=== PATIENT | female | born 1995 | race Caucasian/White ===

== ENCOUNTER 2016-06-25 18:38 | Emergency (ER) | payer SELFPAY ==
[~2016-06-25] VITALS: Ht 175.3 cm; Wt 99.8 kg
[~2016-06-25 18:38] MED LIST: AZTH250C PO; CEFD300C PO; PRCD5U PO; PRD20T PO
--- OUTSIDE RECORDS SUMMARY | 2016-06-25 18:44 | XMS REPORT | Continuity of Care Document ---
Author Author [facility] Organization [facility] Address Unknown Phone Unavailable Care Team Providers Care Photograph Printer Name Role Phone MEREDITH RODGERS MD PP Insurance Providers Payer Name Policy Number Subscriber Name Relationship Self Pay Mariposa Sauer 01 Self / Same As Patient Advance Directives Directive Response Recorded Date Advance Directives N 02/26/13 8:47pm Organ Donor Y 02/26/13 8:47pm Problems No Known Problems or Medical conditions. Social History History Response Recorded Date/Time Alcohol Use Denies Use 02/26/13 8:47pm Recreational Drug Use N 02/26/13 8:47pm Sexually Transmitted Disease N 02/26/13 8 :47pm Allergies, Adverse Reactions, Alerts Allergen Type Severity Reaction Last Updated No Known Drug Allergies 08/06/12 Medications Medication Dose Units Route Sig Qty Days Promethazine HCl/Codeine (Phenergan W/Codeine Syrup) 0 PO Q6H PRN 7 Prednisone 40 Mg PO DAILY 5 Cefdinir (Omnicef Capsule) 300 Mg PO BID 7 Promethazine HCl/Codeine (Phenergan W/Codeine Syrup) 5 Ml PO Q6H PRN 60 Azithromycin (Zithromax) 1 Tab PO DAILY 4 Response Recorded Date/Time Status not known Unknown Results No Known Relevant Diagnostic Tests, Laboratory Data and/or Discharge Summary. Encounters Encounter Location Date/Time Departed Emergency Room [facility] 8:44pm
[2016-06-25] MEDS ORDERED: IRON PO (19:05)
--- NOTE | 2016-06-25 19:12 | ED General ---
General Chief Complaint: Lower Extremity Stated Complaint: L FOOT INJ, ALSO WANTS TO BE SEEN FOR COLD TX 1 MO Nursing Triage Note: RUNNING DOWN HALLWAY AND TRIPPED, STATES SHE HEARD A 'POP' SOUND. C/O SORE KNEE BUT MAIN CONCERN IS UNABLE TO BEAR WEIGHT ON ANKLE. PT STATES SHE HAS ALSO HAD A COLD THAT COMES AND GO X 1 MONTH AND COUGH IS KEEPING HER AWAKE AT NIGHT Nursing Sepsis Screen: No Definite Risk Source of Information: Patient Exam Limitations: No Limitations History of Present Illness Time Seen by Provider: 19:12 Initial Comments 20-year-old female patient presents to the emergency department complains of left foot and left knee pain. Patient reports running down the hallway and tripped. [place] a popping sound in her foot and possibly and her knee. Also reports she has had a cold for approximately one month. Reports she did have 4 days of feeling good without symptoms. The last 2 weeks has had green productive cough, green nasal drainage, mild sore throat, and generalized malaise. Dad reports patient has been waking herself up coughing throughout the night. Father reports patient has used multiple zkyb-qmu-wzpygjb decongestants, antihistamines, and cough suppressants without improvement in symptoms. Timing/Duration: 4-6 Hours ((left ankle and knee)), Constant, Other (1 month onset of upper resp symptoms.) Modifying Factors: worse with Movement, worse with Other (worse with coughing) Allergies and Home Medications Allergies Coded Allergies: No Known Drug Allergies (Unverified , 08/06/12) Home Medications 130 MG PO DAILY (Reported) Benzonatate 200 Mg Capsule #30 200 MG PO Q8H PRN PRN COUGH Prescribed by: MALIK DOYLE on 06/25/161957 Doxycycline Hyclate 100 Mg Capsule #14 100 MG PO BID Prescribed by: MALIK DOYLE on 06/25/161957 Constitutional: No chills, No diaphoresis, No fever, malaise EENTM: nose congestion throat painNo ear pain, No eye pain, No mouth pain, No throat swelling Respiratory: see HPI cough phlegmNo short of breath, No wheezing (occasional wheezing. Denies current wheezing.) Cardiovascular: no symptoms reported Gastrointestinal: no symptoms reported Genitourinary: no symptoms reported Musculoskeletal: see HPINo back pain, joint pain (left foot and left knee) joint swelling (left foot)No neck pain Skin: No change in color, No lumps Psychiatric/Neurological: Denies Headache, Denies Numbness, Denies Paresthesia , Denies Tingling, Denies Weakness All Other Systems Reviewed Negative Unless Noted: Yes (Negative excepted noted.) Past Vyjxznp-Swrhhc-Nugzni Hx Patient Social History Alcohol Use: Occasionally Uses Recreational Drug Use: No Smoking Status: Never a Smoker Recent Foreign Travel: No Contact w/Someone Who Travel: No Recent Infectious Disease Expo: No Recent Hopitalizations: No Physical Abuse Screen: No Sexual Abuse: No Immunizations Up To Date Tetanus Booster (TDap): More than 5yrs PED Vaccines UTD: Yes Seasonal Allergies Seasonal Allergies: Yes (cough ) Surgeries HX Surgeries: No Respiratory Hx Respiratory Disorders: No Cardiovascular Hx Cardiac Disorders: No Neurological Hx Neurological Disorders: No Reproductive System : No Hx Reproductive Disorders: No Sexually Transmitted Disease: No Genitourinary Hx Genitourinary Disorders: No Gastrointestinal Hx Gastrointestinal Disorders: No Musculoskeletal Hx Musculoskeletal Disorders: No Endocrine Hx Endocrine Disorders: No HEENT HX ENT Disorders: No Cancer Hx Cancer: No Psychosocial Hx Psychiatric Problems: Yes Behavioral Health Disorders: Anxiety Integumentary HX Skin/Integumentary Disorder: No Blood Transfusions Hx Blood Disorders: Yes (ANEMIA) Reviewed Nursing Assessment Reviewed/Agree w Nursing PMH: Yes Family Medical History Significant Family History: No Pertinent Family Hx Physical Exam Vital Signs Vital Sign - Last 12Hours 06/25/16 18:48 Temp 97.6 Pulse 126 Resp 22 B/P 147/113 Pulse Ox 98 O2 Delivery Room Air Capillary Refill : Less Than 3 Seconds General Appearance: No Apparent Distress WD/WN HEENT: PERRL/EOMI TMs Normal Pharyngeal Erythema Other (positive nasal congestion. Negative sinus tenderness.) Neck: Full Range of Motion Normal Inspection Non Tender Supple Respiratory: Lungs Clear Normal Breath Sounds No Respiratory Distress Cardiovascular: No Murmur Normal Peripheral Pulses Tachycardia Gastrointestinal: Non Tender SoftNo Distended Extremity: Normal Capillary Refill Normal Range of Motion No Calf Tenderness No Pedal Edema Other (soft tissue and bony tenderness of the lateral, proximal left lower leg. soft tissue and bony tenderness of the left dorsum foot over the 3rd and 4th distal metatarsals. Non-acute ecchymosis left anterior distal thigh and inferior knee (patient states she was cleaning out the garage and bumped the area with storage tubs).) Neurologic/Psychiatric: Alert Oriented x3 No Motor/Sensory Deficits Normal Mood/Affect Skin: Normal Color Warm/Dry Ecchymosis (Non-acute ecchymosis left anterior distal thigh and inferior knee (patient states she was cleaning out the garage and bumped the area with storage tubs).) Progress/Results/Core Measures Results/Orders My Orders Orders-MALIK DOYLE Tibia/Fibula, Left, 2 Views (06/25/16 19:23) Foot, Left, 3 Views (06/25/16 19:23) Hydrocodone/Apap 5/325 Tablet (Lortab 5 (06/25/16 19:23) Benzonatate Capsule (Tessalon Perles) (06/25/16 19:30) Rx-Doxycycline Tablet (Rx-Vibramycin Tab (06/25/16 19:23) Medications Given in ED Current Medications Medications Dose Ordered Sig/Avelino Route Start Time Stop Time Status Last Admin Dose Admin Benzonatate 200 mg ONCE ONCE PO 06/25/16 19:30 06/25/16 19:31 DC 06/25/16 20:03 200 MG Vital Signs/I&O Vital Sign - Last 12Hours 06/25/16 18:48 Temp 97.6 Pulse 126 Resp 22 B/P 147/113 Pulse Ox 98 O2 Delivery Room Air Blood Pressure Mean: 124 Diagnostic Imaging Diagonstic Imaging: Xray Plain Films/CT/US/NM/MRI: leg Comments FINDINGS: There is no evidence for an acute fracture or dislocation. The joint spaces are well maintained. There is no significant soft tissue swelling. The frontal view does not include the distal fibula. IMPRESSION: No acute process. Dictated on workstation # [id number] Reviewed: Reviewed by Me (radiology report reviewed by me) Diagonstic Imaging: Xray Plain Films/CT/US/NM/MRI: other (left foot) Comments FINDINGS: Three views of the foot. There is no evidence for an acute fracture or dislocation. The joint spaces are well maintained. There is no significant soft tissue swelling. IMPRESSION: No acute process. Dictated on workstation # [id number] Reviewed: Reviewed by Me (radiology report reviewed by me) Departure Communication Progress Notes Diagnostic findings discussed with the patient. Plan for discharge to home. Impression Impression: Primary Impression: Sprain of foot, left Qualified Code: S93.602A - Unspecified sprain of left foot, initial encounter Additional Impressions: Knee pain, left Qualified Code: M25.562 - Pain in left knee Bronchitis, acute Qualified Code: J20.9 - Acute bronchitis, unspecified Disposition: 01 HOME, SELF-CARE Condition: Improved Departure-Patient Inst. Decision time for Depature: 20:50 Referrals: MEREDITH MANZANO MD (PCP) Primary Care Physician Patient Instructions: Acute Bronchitis, Adult (DC), Sprain (DC) Add. Discharge Instructions: All discharge instructions reviewed with patient and/or family. Voiced understanding. Medications as instructed. Tylenol Extra Strength over-the- counter as directed for pain. Ibuprofen 800 mg by mouth every 8 hours as needed for pain. Elevate the left knee and foot on pillows. Ice pack for 20 minute intervals as needed for pain. Dev wraps as needed for pain or swelling. Activity as tolerated. Cool humidifier. Bdyr-rgm-hnsmdat saline nasal spray and Afrin nasal spray as needed for nasal congestion. Follow-up with Dr. Manzano as outpatient if no improvement in symptoms in 7-10 days. Return to the emergency department for worsened pain, numbness, weakness, discoloration, shortness of air, chest pain, decreased urination, difficulty swallowing, or any other concerns. Scripts Benzonatate 200 Mg [id number] Mg PO Q8H PRN COUGH #30 CAP Ref 0 Prov:MALIK DOYLE 06/25/16 Doxycycline Hyclate 100 Mg [id number] Mg PO BID #14 CAP Ref 0 Prov:MALIK DOYLE 06/25/16 MALIK DOYLE Jun 25, 2016 19:12
[2016-06-25] MEDS ORDERED: HYDROcodone/APAP 5 MG/325 MG (LORTAB) TAB PO STA (19:23)
[2016-06-25] MEDS ORDERED: RX-DOXYCYCLINE 100 MG (VIBRAMYCIN) TAB PPK#2 PO STA (19:23)
[2016-06-25] MEDS ORDERED: BENZONATATE 100 MG (TESSALON) CAPSULE PO ONE (19:30)
[2016-06-25] MEDS ORDERED: BENZ200C51 PO (19:58)
[2016-06-25] MEDS ORDERED: DOXY100C2 PO (19:58)
--- NOTE | 2016-06-25 20:44 | Diagnostic Imaging Report ---
INDICATION: Lower extremity pain, slipped and fell yesterday EXAMINATION: Tibia and fibula left 06/25/2016 Two views of the tibia and fibula FINDINGS: There is no evidence for an acute fracture or dislocation. The joint spaces are well maintained. There is no significant soft tissue swelling. The frontal view does not include the distal fibula. IMPRESSION: No acute process. Dictated by: Dictated on workstation # [id number]
--- NOTE | 2016-06-25 20:45 | Diagnostic Imaging Report ---
INDICATION: Dorsal foot pain and third through fifth metatarsal pain after injury yesterday. EXAMINATION: Left foot, 06/25/2016. FINDINGS: Three views of the foot. There is no evidence for an acute fracture or dislocation. The joint spaces are well maintained. There is no significant soft tissue swelling. IMPRESSION: No acute process. Dictated by: Dictated on workstation # [id number]
[2016-06-25 21:00] VITALS: BP 139/91
== END 2016-06-25 21:01 | disposition home or self-care (01) ==
LOC: EDUNIT# 18:38 → ER 18:39
DX: S93.602A Unspecified sprain of left foot, initial encounter (principal); M25.562 Pain in left knee; J20.9 Acute bronchitis, unspecified; W01.0XXA Fall on same level from slipping, tripping and stumbling without subsequent striking against object, initial encounter; Y99.8 Other external cause status
CPT/HCPCS: 73590; 73630

== ENCOUNTER 2017-03-13 18:01 | Emergency (ER) | payer SELFPAY ==
[~2017-03-13] VITALS: Ht 175.3 cm; Wt 104.3 kg
[~2017-03-13 18:01] MED LIST changes: +BENZ200C51 PO; +DOXY100C2 PO; +IRON PO
--- OUTSIDE RECORDS SUMMARY | 2017-03-13 18:06 | XMS REPORT | Continuity of Care Document ---
Author Author [facility] Organization [facility] Address Unknown Phone Unavailable Allergies Active Description Code Type Severity Reaction Onset Reported/Identified Relationship to Patient Clinical Status Yes No Known Drug Allergies [id number] Drug Allergy Unknown N/ A 08/06/2012 Medications Problems Date Dx Coded Attending Type Code Diagnosis Diagnosed By 08/06/2012 Ot 465.9 ACUTE URI NOS 08/06/2012 Ot 473.9 CHRONIC SINUSITIS NOS 08/06/2012 Ot 786.2 COUGH 02/26/2013 CARLA PALOMINO APRN Ot 477.9 ALLERGIC RHINITIS NOS 02/26/2013 CARLA PALOMINO APRN Ot 490 BRONCHITIS NOS 02/26/2013 CARLA PALOMINO APRN Ot 786.2 COUGH 11/18/2013 ELIAS PAREDES APRN 278.00 OBESITY UNSPECIFIED 11/18/2013 ELIAS PAREDES APRN 626.4 IRREGULAR MENSTRUAL CYCLE 11/18/2013 ELIAS PAREDES APRN V25.01 CONTRACEPTION - ORAL CONTRACEPTION 11/18/2013 ELIAS PAREDES APRN V65.3 COUNSELING- OBESITY (DIET) 11/18/2013 ELIAS PAREDES APRN V72.62 LAB SCREENING- GENERAL PHYSICAL 11/18/2013 ANCELMO CASTRO MD 278.00 OBESITY UNSPECIFIED 11/18/2013 ANCELMO CASTRO MD 626.4 IRREGULAR MENSTRUAL CYCLE 11/18/2013 ANCELMO CASTRO MD V25.01 CONTRACEPTION - ORAL CONTRACEPTION 11/18/2013 ANCELMO CASTRO MD V65.3 COUNSELING- OBESITY (DIET) 11/18/2013 ANCELMO CASTRO MD V72.62 LAB SCREENING- GENERAL PHYSICAL 11/18/2013 DONY RUFFIN MD 278.00 OBESITY UNSPECIFIED 11/18/2013 DONY RUFFIN MD 626.4 IRREGULAR MENSTRUAL CYCLE 11/18/2013 DONY RUFFIN MD V25.01 CONTRACEPTION - ORAL CONTRACEPTION 11/18/2013 DONY RUFFIN MD V65.3 COUNSELING- OBESITY (DIET) 11/18/2013 DONY RUFFIN MD V72.62 LAB SCREENING- GENERAL PHYSICAL 11/18/2013 ELIAS PAREDES APRN 278.00 OBESITY UNSPECIFIED 11/18/2013 ELIAS PAREDES APRN 626.4 IRREGULAR MENSTRUAL CYCLE 11/18/2013 ELIAS PAREDES APRN V25.01 CONTRACEPTION - ORAL CONTRACEPTION 11/18/2013 ELIAS PAREDES APRN V65.3 COUNSELING- OBESITY (DIET) 11/18/2013 ELIAS PAREDES APRN V72.62 LAB SCREENING- GENERAL PHYSICAL 11/25/2013 MATTHEW FOFANA, ANCELMO N 461.9 SINUSITIS ACUTE 11/25/2013 DONY RUFFIN MD 461.9 SINUSITIS ACUTE 11/25/2013 ELIAS PAREDES APRN 461.9 SINUSITIS ACUTE 04/20/2014 DONY RUFFIN MD 477.9 ALLERGIC RHINITIS CAUSE UNSPECIFIED 04/20/2014 ZORAN PAREDES APRNIDI A 477.9 ALLERGIC RHINITIS CAUSE UNSPECIFIED 06/25/2016 MALIK MANDUJANO Ot J20.9 ACUTE BRONCHITIS, UNSPECIFIED 06/25/2016 MALIK MANDUJANO Ot M25.562 PAIN IN LEFT KNEE 06/25/2016 MALIK MANDUJANO Ot S93.602A UNSPECIFIED SPRAIN OF LEFT FOOT, INITIAL 06/25/2016 MALIK MANDUJANO Ot S99.922A UNSPECIFIED INJURY OF LEFT FOOT, INITIAL 06/25/2016 MALIK MANDUJANO Ot W01.0XXA FALL SAME LEV FROM SLIP/TRIP W/O STRIKE 06/25/2016 MALIK MANDUJANO Ot Y99.8 OTHER EXTERNAL CAUSE STATUS 06/28/2016 MALIK MANDUJANO Ot J20.9 ACUTE BRONCHITIS, UNSPECIFIED 06/28/2016 MALIK MANDUJANO Ot M25.562 PAIN IN LEFT KNEE 06/28/2016 MALIK MANDUJANO Ot S93.602A UNSPECIFIED SPRAIN OF LEFT FOOT, INITIAL 06/28/2016 MALIK MANDUJANO Ot S99.922A UNSPECIFIED INJURY OF LEFT FOOT, INITIAL 06/28/2016 YANIRA MACKEYMALIK Caroline Ot W01.0XXA FALL SAME LEV FROM SLIP/TRIP W/O STRIKE 06/28/2016 YANIRA MACKEYSAURABHMALIK Caroline Ot Y99.8 OTHER EXTERNAL CAUSE STATUS 07/01/2016 YANIRA MACKEYSAURABHMALIK L Ot J20.9 ACUTE BRONCHITIS, UNSPECIFIED 07/01/2016 YANIRA NARENDRAMALIK Caroline Ot M25.562 PAIN IN LEFT KNEE 07/01/2016 YANIRA MACKEY MALIK Caroline Ot S93.602A UNSPECIFIED SPRAIN OF LEFT FOOT, INITIAL 07/01/2016 YANIRA MACKEY MALIK L Ot S99.922A UNSPECIFIED INJURY OF LEFT FOOT, INITIAL 07/01/2016 YANIRA MACKEYSAURABHMALIK L Ot W01.0XXA FALL SAME LEV FROM SLIP/TRIP W/O STRIKE 07/01/2016 YANIRA MACKEYSAURABHMALIK L Ot Y99.8 OTHER EXTERNAL CAUSE STATUS Procedures Code Description [place] [address] TEST, URINE (IN-HOUSE) 11/18/2013 01454 ROUTINE VENIPUNCTURE 11/19/2013 1583768 GFR CALC (RESULT ONLY) 11/19/2013 76045 CMP 11/19/2013 74416 LIPID PANEL 11/19 29944 TSH 11/19/2013 05997 INSULIN LEVEL 89851 CBC 11/20/2013 01246 TEST, URINE (IN-HOUSE) 05/25/2014 Results Encounters ACCT No. Visit Date/Time Discharge Status Pt. Type Provider Facility Loc./Unit Complaint [id number] 06/25/2016 18:39:00 2016 21:01:00 DIS Emergency MALIK MANDUJANO [facility] ER L FOOT INJ, ALSO WANTS TO BE SEEN FOR COLD TX 1 MO [id number] 02/26/2013 20:44:00 2012 21:35:00 DIS Emergency CARLA PALOMINO APRN [facility] ER COUGH, SORE THROAT, CHEST TIGHTNESS [id number] 08/06/2012 00:44:00 Document Registration [id number] 05/25/2014 14:37:00 05/25/2014 23: 59:59 CLS Outpatient ELIAS PAREDES APRN [id number] 04/20/2014 13:51:00 04/20/2014 23: 59:59 CLS Outpatient DONY RUFFIN MD [id number] 11/25/2013 10:57:00 11/25/2013 23: 59:59 CLS Outpatient ANCELMO CASTRO MD [id number] 11/19/2013 13:26:00 11/19/2013 23: 59:59 CLS Outpatient ELIAS PAREDES APRN
--- NOTE | 2017-03-13 18:25 | ED EENT ---
History of Present Illness General Stated Complaint: SORE THROAT Source: patient Exam Limitations: no limitations History of Present Illness Time seen by provider: 18:22 Initial Comments To ER with a sore throat for 3 days with fever and nonproductive cough. Timing/Duration: abrupt Severity: moderate Location: throat Associated Symptoms: cough, fever, sore throat Allergies and Home Medications Allergies Coded Allergies: No Known Drug Allergies (Unverified , 08/06/12) Home Medications Benzonatate 200 Mg Capsule, 200 MG PO Q8H PRN for COUGH, #30 Ref 0 Prescribed by: MALIK DOYLE on 06/25/161957 Cefuroxime Axetil 250 Mg Tablet, 250 MG PO BID, #14 Prescribed by: CARLA PALOMINO on 03/13/171848 Doxycycline Hyclate 100 Mg Capsule, 100 MG PO BID, #14 Ref 0 Prescribed by: MALIK DOYLE on 06/25/161957 Lidocaine HCl 30 Ml Jel..ml., 1 ML MM Q1HR PRN for PAIN-MODERATE, #1 Prescribed by: CARLA PALOMINO on 03/13/171848 Promethazine HCl/Codeine 5 Ml Syrup, 5 ML PO Q4H PRN for COUGH, #60 Prescribed by: CARLA PALOMINO on 03/13/171848 [Iron] , 130 MG PO DAILY, (Reported) Review of Systems Constitutional: see HPI, chills, fever Eyes: No Symptoms Reported Ears: No Symptoms Reported Nose: see HPI Mouth: no symptoms reported Respiratory: no symptoms reported, see HPI Cardiovascular: no symptoms reported Musculoskeletal: no symptoms reported Past Ohanvzq-Oqxldh-Jgxice Hx Patient Social History Recent Foreign Travel: No Contact w/Someone Who Travel: No Recent Hopitalizations: No Immunizations Up To Date Tetanus Booster (TDap): More than 5yrs PED Vaccines UTD: Yes Seasonal Allergies Seasonal Allergies: Yes (cough ) Reproductive System Hx Reproductive Disorders: No Sexually Transmitted Disease: No Psychosocial Behavioral Health Disorders: Anxiety Family Medical History Significant Family History: No Pertinent Family Hx Physical Exam Vital Signs Vital Sign - Last 12Hours 03/13/17 18:27 Temp 97.0 Pulse 125 Resp 18 B/P (MAP) 134/92 Pulse Ox 100 General Appearance: WD/WN, no apparent distress Eyes: bilateral eye normal inspection, bilateral eye PERRL, bilateral eye EOMI Ears: bilateral ear auricle normal, bilateral ear canal normal, bilateral ear TM normal Mouth/Throat: normal mouth inspection, pharynx tenderness, tonsillar exudate ( no uvular deviation to suggest peritonsillar abscess. ), No trismus, No uvula swelling Neck: non-tender, full range of motion, lymphadenopathy (R), lymphadenopathy (L ), other (large submandibular and anterior cervical chain adenopathy) Cardiovascular: regular rate, rhythm, no murmur Respiratory: no respiratory distress, no accessory muscle use Gastrointestinal: normal bowel sounds, non tender, soft Neurologic/Psychiatric: alert, normal mood/affect, oriented x 3 Skin: normal color, warm/dry Progress/Results/Core Measures Results/Orders Lab Results Laboratory Tests Test 03/13/17 18:17 Range/Units Group A Streptococcus Screen NEGATIVE NEGATIVE My Orders Orders - CARLA PALOMINO APRN Rapid Strep A Screen (03/13/17 18:21) Ns Iv 1000 Ml (Sodium Chloride 0.9%) (03/13/17 18:45) Ketorolac Injection (Toradol Injection) (03/13/17 18:45) Dexamethasone Injection (Decadron Inject (03/13/17 18:45) Dexamethasone Injection (Decadron Inject (03/13/17 18:45) Ceftriaxone Injection (Rocephin Injectio (03/13/17 18:45) Lidocaine 1% Injection (Xylocaine 1% Inj (03/13/17 18:45) Vital Signs/I&O Vital Sign - Last 12Hours 03/13/17 18:27 Temp 97.0 Pulse 125 Resp 18 B/P (MAP) 134/92 Pulse Ox 100 Departure Communication (Admissions) Progress Notes 1845 I did discuss with the patient and her mother the negative strep result and that this could be a false negative, this could be a different class of strep such as group C strep, mononucleosis or a variety of other viruses. I offered starting an IV and giving fluids and testing for mononucleosis but they declined. I also offered intramuscular injection of steroids and antibiotic and they would like to proceed with this. If symptoms fail to improve they assure me they will follow-up for lab work. Impression Impression: Primary Impression: Pharyngitis Disposition: 01 HOME, SELF-CARE Condition: Stable Departure-Patient Inst. Decision time for Depature: 18:46 Referrals: NO,LOCAL PHYSICIAN (PCP/Family) Primary Care Physician Patient Instructions: Sore Throat, Adult (DC) Add. Discharge Instructions: 1. Use Tylenol and Motrin 2. Expect to feel a little better around tomorrow evening once the steroid shot and started to work 3. Take antibiotics as directed 4. Return to ER for any worsening Scripts Promethazine HCl/Codeine (Prometh-Codein 6.25-10 mg/5 ml) 5 Ml Syrup 5 ML PO Q4H Y for COUGH, #60 ML Prov: CARLA PALOMINO APRN 03/13/17 Cefuroxime Axetil (Cefuroxime) 250 Mg Tablet 250 MG PO BID, #14 TAB Prov: CARLA PALOMINO APRN 03/13/17 Lidocaine HCl (Lidocaine HCl) 30 Ml Jel..ml. 1 ML MM Q1HR Y for PAIN-MODERATE, #1 EACH Prov: CARLA PALOMINO APRN 03/13/17 CARLA PALOMINO APRN Mar 13, 2017 18:25
[2017-03-13] MEDS ORDERED: DEXAMETHASONE 10 MG/ML (DECADRON) 1 ML VIAL IV ONE (18:45)
[2017-03-13] MEDS ORDERED: DEXAMETHASONE 10 MG/ML (DECADRON) 1 ML VIAL IM ONE (18:45)
[2017-03-13] MEDS ORDERED: NS IV 1000 ML 1,000 ML IV SCH (18:45)
[2017-03-13] MEDS ORDERED: LIDOCAINE 1% INJ 20 ML (XYLOCAINE) VIAL INJ ONE (18:45)
[2017-03-13] MEDS ORDERED: KETOROLAC 30 MG/ML VIAL IVP ONE (18:45)
[2017-03-13] MEDS ORDERED: cefTRIAXone 1 GM (ROCEPHIN) VIAL IM ONE (18:45)
[2017-03-13] MEDS ORDERED: CEFU250T80 PO (18:49)
[2017-03-13] MEDS ORDERED: PROM5SYR PO (18:49)
[2017-03-13] MEDS ORDERED: LIDO30JE10 MM (18:49)
[2017-03-13 19:19] VITALS: BP 132/87
== END 2017-03-13 19:19 | disposition home or self-care (01) ==
LOC: EDUNIT# 18:01 → ER 18:03
DX: J02.9 Acute pharyngitis, unspecified (principal); F41.9 Anxiety disorder, unspecified; Z87.09 Personal history of other diseases of the respiratory system
CPT/HCPCS: 87430; 99284

== ENCOUNTER 2017-08-07 22:59 | Emergency (ER) | payer BC ==
[~2017-08-07] VITALS: Ht 167.6 cm; Wt 99.8 kg
[~2017-08-07 22:59] MED LIST changes: +CEFU250T80 PO; +LIDO30JE10 MM; +PROM5SYR PO
--- OUTSIDE RECORDS SUMMARY | 2017-08-07 23:04 | XMS REPORT | Continuity of Care Document ---
Author Author [facility] Organization [facility] Address Unknown Phone Unavailable Allergies Active Description Code Type Severity Reaction Onset Reported/Identified Relationship to Patient Clinical Status Yes No Known Drug Allergies [id number] Drug Allergy Unknown N/A 08/06/2012 Medications There is no data. Problems Date Dx Coded Attending Type Code Diagnosis Diagnosed By 08/06/2012 Ot 465.9 ACUTE URI NOS 08/06/2012 Ot 473.9 CHRONIC SINUSITIS NOS 08/06/2012 Ot 786.2 COUGH 02/26/2013 ACRLA PALOMINO APRN Ot 477.9 ALLERGIC RHINITIS NOS [...] PAREDES APRN V65.3 COUNSELING- OBESITY (DIET) 11/18/2013 ZORAN PAREDES APRNIDI Elke V72.62 LAB SCREENING- GENERAL PHYSICAL 11/25/2013 MATTHEW FOFANA, ANCELMO N 461.9 SINUSITIS ACUTE 11/25/2013 DONY RUFFIN MD 461.9 SINUSITIS ACUTE 11/25/2013 ELIAS PAREDES APRN 461.9 SINUSITIS ACUTE 04/20/2014 DONY RUFFIN MD 477.9 ALLERGIC RHINITIS CAUSE UNSPECIFIED 04/20/2014 ZORAN PAREDES APRNIDI A 477.9 ALLERGIC RHINITIS CAUSE UNSPECIFIED 06/25/2016 MALIK MANUDJANO Ot J20.9 ACUTE BRONCHITIS, UNSPECIFIED 06/25/2016 MALIK [...] MANDUJANO Ot J20.9 ACUTE BRONCHITIS, UNSPECIFIED 06/28/2016 AMLIK MANDUJANO Ot M25.562 PAIN IN LEFT KNEE 06/28/2016 MALIK MANDUJANO Ot S93.602A UNSPECIFIED SPRAIN OF LEFT FOOT, INITIAL 06/28/2016 MALIK MANDUJANO Ot S99.922A UNSPECIFIED INJURY OF LEFT FOOT, INITIAL 06/28/2016 YANIRA MACKEYMALIK Caroline Ot W01.0XXA FALL SAME LEV FROM SLIP/TRIP W/O STRIKE 06/28/2016 YANIRA MACKEYMALIK Caroline Ot Y99.8 OTHER EXTERNAL CAUSE STATUS 07/01/2016 YANIRA NARENDRAMALIK Caroline Ot J20.9 ACUTE BRONCHITIS, UNSPECIFIED 07/01/2016 YANIRA MACKEY MALIK Caroline Ot M25.562 PAIN IN LEFT KNEE 07/01/2016 YANIRA MACKEY MALIK Caroline Ot S93.602A UNSPECIFIED SPRAIN OF LEFT FOOT, INITIAL 07/01/2016 YANIRA MACKEY MALIK Caroline Ot S99.922A UNSPECIFIED INJURY OF LEFT FOOT, INITIAL 07/01/2016 YANIRA MACKEYMALIK Caroline Ot W01.0XXA FALL SAME LEV FROM SLIP/TRIP W/O STRIKE 07/01/2016 YANIRA MACKEY MALIK L Ot Y99.8 OTHER EXTERNAL CAUSE STATUS 03/15/2017 CARLA PALOMINO APRN Ot F41.9 ANXIETY DISORDER, UNSPECIFIED 03/15/2017 CARLA PALOMINO APRN Ot J02.9 ACUTE PHARYNGITIS, UNSPECIFIED 03/15/2017 CARLA PALOMINO APRN Ot Z87.09 PERSONAL HISTORY OF OTHER DISEASES OF Procedures Code Description [place] [address] TEST, URINE (IN- HOUSE) 11/18/2013 26021 ROUTINE VENIPUNCTURE 11/19/2013 2638622 GFR CALC (RESULT ONLY) 11/19/2013 15745 CMP 11/19/2013 52020 LIPID PANEL 11/19/2013 16110 TSH 11/19/2013 47143 INSULIN LEVEL 11/19/2013 16783 CBC 11/20/2013 14353 TEST, URINE (IN- HOUSE) 05/25/2014 Results Test Result Range Streptococcus pyogenes antigen detection - 03/13/17 18:17 Streptococcus pyogenes antigen detection NEGATIVE NEGATIVE Encounters ACCT No. Visit Date/Time Discharge Status Pt. Type Provider Facility Loc./Unit Complaint [id number] 03/13/2017 18:03:00 03/13/2017 19:19:00 DIS Outpatient CARLA PALOMINO APRN [facility] ER SORE THROAT [id number] 06/25/2016 18:39:00 06/25/2016 21:01:00 DIS Emergency MALIK MANDUJANO [facility] ER L FOOT INJ, ALSO WANTS TO BE SEEN FOR COLD TX 1 MO [id number] 02/26/2013 20:44:00 02/26/2013 21:35:00 DIS Emergency CARLA PALOMINO APRN [facility] ER COUGH, SORE THROAT, CHEST TIGHTNESS [id number] 08/07/2017 23:00:00 ACT Emergency BRANDY DO LEOLA K [facility] ER POSS PNEUMONIA [id number] 08/06/2012 00:44:00 Document Registration [id number] 05/25/2014 14:37:00 05/25/2014 23:59:59 CLS Outpatient ELIAS PAREDES APRN [id number] 04/20/2014 13:51:00 04/20/2014 23:59:59 CLS Outpatient DONY RUFFIN MD [id number] 11/25/2013 10:57:00 11/25/2013 23:59:59 CLS Outpatient ANCELMO CASTRO MD [id number] 11/19/2013 13:26:00 11/19/2013 23:59:59 CLS Outpatient ELIAS PAREDES APRN
[2017-08-07] MEDS ORDERED: BENZ-13 PO (23:44)
[2017-08-07] MEDS ORDERED: D-ME118S7 PO (23:44)
[2017-08-07] MEDS ORDERED: METH4TAB PO (23:44)
[2017-08-07] MEDS ORDERED: DOXY100C42 PO (23:44)
[2017-08-07] MEDS ORDERED: RX-DOXYCYCLINE 100 MG (VIBRAMYCIN) TAB PPK#2 PO STA (23:45)
[2017-08-07] MEDS ORDERED: PROMETHAZINE/ CODEINE SYRUP 5 ML UDC PO ONE (23:45)
[2017-08-07] MEDS ORDERED: BENZONATATE 100 MG (TESSALON) CAPSULE PO ONE (23:46)
--- NOTE | 2017-08-07 23:46 | ED Cough/URI ---
General Chief Complaint: Cough/Cold/Flu Symptoms Stated Complaint: POSS PNEUMONIA Nursing Triage Note: PT TO ED 10 W/ PARENT FOR C/O COUGH X3-4 WKS, WORSE OVER PAST 3-4 DAYS. PT'S FATHER STATES SHE CAME TO THIS ED AT INITIAL ONSET, STATES SHE WAS TOLD ED WAS "TOO BUSY, GO HOME ET TAKE TAMIFLU". PT DENIES SEEING PCP FOR C/O. DENIES FEVER. DOES STATE SHE "JUST DOESN'T FEEL RIGHT". Source: patient, family (DAD) History of Present Illness Date Seen by Provider: Aug 07, 2017 Time Seen by Provider: 23:10 Initial Comments PT STATES SHE HAS BEEN SICK FOR 3-4 WEEKS HAS HAD A NON-PRODUCTIVE COUGH, THAT IS GETTING WORSE FEELS SLIGHTLY SHORT OF BREATH AT TIMES CHEST OCCASIONALLY ANNE DUE TO COUGHING COUGHS SO HARD SHE IS INCONTINENT OF URINE AND SOMETIMES FEELS LIKE SHE IS GOING TO PASS OUT. NO FEVER HAD RUNNY NOSE AND SORE THROAT 1 WEEK AGO, HAD BODY ACHES AND SUBJECTIVE FEVER, BUT ALL THOSE SYMPTOMS ARE GONE STATES SHE GETS BRONCHITIS EVERY YEAR MULTIPLE FAMILY MEMBERS HAVE BEEN ILL WITH SAME, AND ALSO CHILDREN SHE BABYSITS HAVE BEEN ILL WITH SAME. BOTH PARENTS SMOKE. PCP: DR. RODGERS Allergies and Home Medications Allergies Coded Allergies: No Known Drug Allergies (Unverified , 08/06/12) Home Medications Benzonatate 200 Mg Capsule, 200 MG PO Q8H PRN for COUGH Prescribed by: MALIK DOYLE on 06/25/161957 Benzonatate 100 Mg Capsule, 1-2 TAB PO TID Prescribed by: LEOLA NAVA on 08/07/172343 Cefuroxime Axetil 250 Mg Tablet, 250 MG PO BID Prescribed by: CARLA PALOMINO on 03/13/171848 D-Methorphan Hb/Prometh HCl 118 Ml Syrup, 1-2 TSP PO Q4H Prescribed by: LEOLA NAVA on 08/07/172343 Doxycycline Hyclate 100 Mg Capsule, 100 MG PO BID Prescribed by: MALIK DOYLE on 06/25/161957 Doxycycline Monohydrate 100 Mg Capsule, 100 MG PO BID Prescribed by: LEOLA NAVA on 08/07/172343 Lidocaine HCl 30 Ml Jel..ml., 1 ML MM Q1HR PRN for PAIN-MODERATE Prescribed by: CARLA PALOMINO on 03/13/171848 Methylprednisolone 4 Mg Tab.ds.pk, 4 MG PO UD Prescribed by: LEOLA NAVA on 08/07/17 2344 Promethazine HCl/Codeine 5 Ml Syrup, 5 ML PO Q4H PRN for COUGH Prescribed by: CARLA PALOMINO on 03/13/171848 [Iron] , 130 MG PO DAILY, (Reported) Patient Home Medication List Home Medication List Reviewed: Yes Constitutional: see HPI EENTM: see HPI, nose congestion, throat pain Respiratory: see HPI, cough Cardiovascular: no symptoms reported Gastrointestinal: no symptoms reported Genitourinary: no symptoms reported : No LMP: Jul 18, 2017 Musculoskeletal: see HPI Skin: no symptoms reported Psychiatric/Neurological: No Symptoms Reported Hematologic/Lymphatic: No Symptoms Reported Immunological/Allergic: no symptoms reported Past Ncetcuo-Coifqr-Tsesct Hx Patient Social History Alcohol Use: Denies Use Recreational Drug Use: No Smoking Status: Never a Smoker 2nd Hand Smoke Exposure: Yes (BOTH PARENTS SMOKE) Recent Foreign Travel: No Contact w/Someone Who Travel: No Recent Infectious Disease Expo: No Recent Hopitalizations: No Physical Abuse: No Sexual Abuse: No Mistreated: No Fear: No Immunizations Up To Date Tetanus Booster (TDap): More than 5yrs PED Vaccines UTD: Yes Seasonal Allergies Seasonal Allergies: Yes (cough ) Surgeries History of Surgeries: No Respiratory History of Respiratory Disorde: No Cardiovascular History of Cardiac Disorders: No Neurological History of Neurological Disord: Yes (BRONCHITIS) Reproductive System : No Hx Reproductive Disorders: No Sexually Transmitted Disease: No Female Reproductive Disorders: Denies Genitourinary History of Genitourinary Disor: No Gastrointestinal History of Gastrointestinal Di: No Musculoskeletal History of Musculoskeletal Dis: No Endocrine History of Endocrine Disorders: No HEENT History of HEENT Disorders: No Cancer History of Cancer: No Psychosocial History of Psychiatric Problem: Yes Behavioral Health Disorders: Anxiety Suicide Risk Score: 0 Integumentary History of Skin or Integumenta: No Blood Transfusions History of Blood Disorders: Yes (ANEMIA) Family Medical History Significant Family History: No Pertinent Family Hx Physical Exam Vital Signs Vital Signs - First Documented 08/07/17 23:06 Temp 97.4 Pulse 101 Resp 20 B/P (MAP) 138/70 (92) Pulse Ox 99 O2 Delivery Room Air Capillary Refill : Less Than 3 Seconds General Appearance: no apparent distress, obese HEENT: PERRL/EOMI, normal ENT inspection, TMs normal, pharynx normal, other ( CLEAR POST NASAL DRAINAGE. NO SINUS TENDERNESS) Neck: non-tender, full range of motion, supple, normal inspection Respiratory: normal breath sounds, no respiratory distress, no accessory muscle use, other (OCCASIONAL DRY COUGH) Cardiovascular: regular rate, rhythm, no murmur Gastrointestinal: non tender, soft Extremities: normal inspection, normal capillary refill Neurologic/Psychiatric: front counter clerk II-XII nml as tested, no motor/sensory deficits, alert, normal mood/affect, oriented x 3 Skin: normal color, warm/dry Progress/Results/Core Measures Suspected Sepsis Recent Fever Within 48 Hours: No Infection Criteria Present: None New/Unexplained Altered Menta: No Sepsis Screen: No Definite Risk Sepsis Diagnosis: SIRS Temperature:97.4 Pulse: 101 Respiratory Rate: 20 Blood Pressure 138 /70 Mean: 92 Results/Orders My Orders Orders - LEOLA NVAA DO Chest Pa/Lat (2 View) (08/07/17 23:12) Rx-Doxycycline Tablet (Rx-Vibramycin Tab (08/07/17 23:45) Benzonatate Capsule (Tessalon Perles) (08/08/17 09:00) Promethazine/ Codeine Syrup (Phenergan W (08/07/17 23:45) Benzonatate Capsule (Tessalon Perles) (08/07/17 23:46) Medications Given in ED Current Medications Medications Dose Ordered Sig/Avelino Route Start Time Stop Time Status Last Admin Dose Admin Promethazine HCl/ Codeine 5 ml ONCE ONCE PO 08/07/17 23:45 08/08/17 00:56 DC 08/07/17 23:50 5 ML Vital Signs/I&O Vital Sign - Last 12Hours 08/07/17 08/07/17 23:06 23:54 Temp 97.4 Pulse 101 98 Resp 20 20 B/P (MAP) 138/70 (92) 137/72 Pulse Ox 99 99 O2 Delivery Room Air Capillary Refill : Less Than 3 Seconds Blood Pressure Mean: 92 Diagnostic Imaging Comments CXR--NO ACUTE PROCESS, PENDING RADIOLOGIST REVIEW Reviewed: Reviewed by Me Departure Impression Impression: Primary Impression: Bronchitis, acute Disposition: 01 HOME, SELF-CARE Condition: Stable Departure-Patient Inst. Referrals: MEREDITH RODGERS MD Patient Instructions: Acute Bronchitis, Adult (DC) Add. Discharge Instructions: LOTS OF CLEAR LIQUIDS TYLENOL AND MOTRIN NEEDED FOR PAIN OR FEVER FOLLOW UP WITH YOUR DR IN 3-4 DAYS IF NO BETTER RETURN TO ER IF WORSE All discharge instructions reviewed with patient and/or family. Voiced understanding. Scripts Methylprednisolone (Medrol) 4 Mg Tab.ds.pk 4 MG PO UD, #1 PKG Prov: LEOLA NAVA DO 08/07/17 Benzonatate (Tessalon Perle) 100 Mg Capsule 1-2 TAB PO TID for Cough, #30 CAP Prov: LEOLA NAVA DO 08/07/17 D-Methorphan Hb/Prometh HCl (Promethazine-Dm Syrup) 118 Ml Syrup 1-2 TSP PO Q4H for Cough, #120 ML Prov: LEOLA NAVA DO 08/07/17 Doxycycline Monohydrate (Doxycycline Monohydrate) 100 Mg Capsule 100 MG PO BID, #20 CAP Prov: LEOLA NAVA DO 08/07/17 LEOLA NAVA DO Aug 07, 2017 23:46
[2017-08-07 23:54] VITALS: BP 137/72
--- NOTE | 2017-08-08 06:57 | Diagnostic Imaging Report ---
Indication: Cough Comparison: 07/21/2009 Findings: 2 views of the chest are obtained. Heart size is normal. The pulmonary vessels appear unremarkable. There is no pneumothorax, mediastinal widening or pleural fluid demonstrated. The lungs are clear. The osseous structures appear unremarkable. IMPRESSION: No acute abnormalities demonstrated. Dictated by: Dictated on workstation # [id number]
[2017-08-08] MEDS ORDERED: BENZONATATE 100 MG (TESSALON) CAPSULE PO SCH (09:00)
== END 2017-08-07 23:54 | disposition home or self-care (01) ==
LOC: EDUNIT# 22:59 → ER 23:00
DX: J20.9 Acute bronchitis, unspecified (principal); F41.9 Anxiety disorder, unspecified; D64.9 Anemia, unspecified; Z77.22 Contact with and (suspected) exposure to environmental tobacco smoke (acute) (chronic); Z79.52 Long term (current) use of systemic steroids
CPT/HCPCS: 71046

== ENCOUNTER 2018-03-06 17:36 | Emergency (ER) | payer BC ==
[~2018-03-06] VITALS: Ht 172.7 cm; Wt 117.9 kg
[~2018-03-06 17:36] MED LIST changes: +BENZ100C18 PO; +D-ME118S7 PO; +DOXY100C42 PO; -LIDO30JE10 MM; +LIDO30JE3 MM; +METH4TAB PO
--- OUTSIDE RECORDS SUMMARY | 2018-03-06 17:40 | XMS REPORT ---
Author Author VIKAS BLANCAS Organization [facility] Address [address] [place] [address] Care Team Providers Care Professor Of Legal Studies Name Role Phone VIKAS BLANCAS Unavailable PROBLEMS Type Condition ICD9-CM Code AYB83-UT Code Onset Dates Condition Status SNOMED Code Problem Reactive airway disease without complication, unspecified asthma severity, unspecified whether persistent J45.909 Active [id number] ALLERGIES Substance Reaction Event Type Date Status Penicillin V Potassium Unknown Drug Allergy Jan, Active ENCOUNTERS Encounter Location Date Diagnosis [facility] [id number] [place] [phone] Jan, Reactive airway disease without complication, unspecified asthma severity, unspecified whether persistent J45.909 ; Allergic rhinitis, unspecified seasonality, unspecified trigger J30.9 and BMI 40.0-44.9, adult Z68.41 [facility] [id number] [place] [phone] Sep, [facility] [id number] [place] [phone] Sep, [facility] [id number] [place] [address] May, [facility] [id number] [place] [address]- [address] May, [facility] [id number] [place] [address]- [address] May, [facility] [id number] [place] [phone]- [address] May, [facility] [id number] [place] [phone] Apr, [place] [id number] [place] [address] Apr, [facility] [id number] [place] [address] Apr, [facility] [id number] [place] [address] Apr, [facility] [id number] [place] [address] Nov, [facility] [id number] [place] [address] Nov, [facility] [id number] [place] [address] Nov, [facility] [id number] [place] [address] Nov, [facility] [id number] [place] [address] Nov, [facility] [id number] [place] [address] Nov, [facility] [id number] [place] [address] Nov, [facility] [id number] [place] [address] Nov, IMMUNIZATIONS No Known Immunizations SOCIAL HISTORY Never Assessed REASON FOR VISIT Cold symptoms-ISABEL bui, sore throat, coughing up green phlegm PLAN OF CARE Activity Details Follow Up prn Reason: VITAL SIGNS Height 64 in 2018-01-17 Weight 256.6 lbs 2018-01-17 Temperature 98.4 degrees Fahrenheit 2018-01-17 Heart Rate 85 bpm 2018-01-17 Respiratory Rate 18 2018-01-17 Oximetry on room air:98 % 2018-01-17 BMI 44.04 kg/m2 2018-01-17 Blood pressure systolic 110 mmHg 2018-01-17 Blood pressure diastolic 80 mmHg 2018-01-17 MEDICATIONS Medication Instructions Dosage Frequency Start Date End Date Duration Status ProAir HFA 108 (90 Base) MCG/ACT Inhalation every 6 hrs 2 puffs as needed 6h Jan, 30 days Active Ferrous Sulfate by oral route Nov, Active Singulair 10 mg Orally Once a day 1 tablet 24h Jan, 30 day(s) Active Zithromax Z-Jason 250 MG Orally Once a day 2 tablets on the first day, then 1 tablet daily for 4 days 24h Jan, Jan, 5 day(s) Active RESULTS No Results PROCEDURES No Known procedures INSTRUCTIONS MEDICATIONS ADMINISTERED No Known Medications
--- OUTSIDE RECORDS SUMMARY | 2018-03-06 17:41 | XMS REPORT | Continuity of Care Document ---
Author Author [facility] Address Unknown Phone Unavailable Allergies Active Description Code Type Severity Reaction Onset Reported/Identified Relationship to Patient Clinical Status Yes No Known Drug Allergies [id number] Drug Allergy Unknown N/A 08/06/2012 Medications There [...] SCREENING- GENERAL PHYSICAL 11/25/2013 MATTHEW FOFANA, ANCELMO Cortes 461.9 SINUSITIS ACUTE 11/25/2013 DONY RUFFIN MD 461.9 SINUSITIS ACUTE 11/25/2013 ELIAS PAREDES APRN 461.9 SINUSITIS ACUTE 04/20/2014 DONY RUFFIN MD 477.9 ALLERGIC RHINITIS CAUSE UNSPECIFIED 04/20/2014 ELIAS PAREDES APRN A 477.9 ALLERGIC RHINITIS CAUSE UNSPECIFIED 06/25/2016 [...] UNSPECIFIED INJURY OF LEFT FOOT, INITIAL 06/28/2016 MALIK MANDUJANO Ot W01.0XXA FALL SAME LEV FROM SLIP/TRIP W/O STRIKE 06/28/2016 MALIK MANDUJANO Ot Y99.8 OTHER EXTERNAL CAUSE STATUS 07/01/2016 MALIK MANDUJANO Ot J20.9 ACUTE BRONCHITIS, UNSPECIFIED 07/01/2016 MALIK MANDUJANO Ot M25.562 PAIN IN LEFT KNEE 07/01/2016 MALIK MANDUJANO Ot S93.602A UNSPECIFIED SPRAIN OF LEFT FOOT, INITIAL 07/01/2016 MALIK MANDUJANO Ot S99.922A UNSPECIFIED INJURY OF LEFT FOOT, INITIAL 07/01/2016 MALIK MANDUJANO Ot W01.0XXA FALL SAME LEV FROM SLIP/TRIP W/O STRIKE 07/01/2016 MALIK MANDUJANO Ot Y99.8 OTHER EXTERNAL CAUSE STATUS 03/13/2017 CARLA PALOMINO APRN Ot F41.9 ANXIETY DISORDER, UNSPECIFIED 03/13/2017 CARLA PALOMINO APRN Ot J02.9 ACUTE PHARYNGITIS, UNSPECIFIED 03/13/2017 CARLA PALOMINO APRN Ot Z87.09 PERSONAL HISTORY OF OTHER DISEASES OF 03/15/2017 CARLA PALOMINO APRN Ot F41.9 ANXIETY DISORDER, UNSPECIFIED 03/15/2017 CARLA PALOMINO APRN Ot J02.9 ACUTE PHARYNGITIS, UNSPECIFIED 03/15/2017 CARLA PALOMINO APRN Ot Z87.09 PERSONAL HISTORY OF OTHER DISEASES OF 08/07/2017 LEOLA NAVA DO Ot D64.9 ANEMIA, UNSPECIFIED 08/07/2017 LEOLA NAVA DO Ot F41.9 ANXIETY DISORDER, UNSPECIFIED 08/07/2017 LEOLA NAVA DO Ot J20.9 ACUTE BRONCHITIS, UNSPECIFIED 08/07/2017 LEOLA NAVA DO Ot R05 COUGH 08/07/2017 LEOLA NAVA DO Ot Z77.22 CNTCT W AND EXPSR TO ENVIRON TOBACCO SMO 08/07/2017 LEOLA NAVA DO Ot Z79.52 PRISON (CURRENT) USE OF SYSTEMIC STER 08/09/2017 LEOLA NAVA DO Ot D64.9 ANEMIA, UNSPECIFIED 08/09/2017 LEOLA NAVA DO Ot F41.9 ANXIETY DISORDER, UNSPECIFIED 08/09/2017 LEOLA NAVA DO Ot J20.9 ACUTE BRONCHITIS, UNSPECIFIED 08/09/2017 LEOLA NAVA DO Ot R05 COUGH 08/09/2017 LEOLA NAVA DO Ot Z77.22 CNTCT W AND EXPSR TO ENVIRON TOBACCO SMO 08/09/2017 LEOLA NAVA DO Ot Z79.52 PRISON (CURRENT) USE OF SYSTEMIC STER Procedures Code Description [place] [address] TEST, URINE (IN- HOUSE) 11/18/2013 07894 ROUTINE VENIPUNCTURE 11/19/2013 3002658 GFR CALC (RESULT ONLY) 11/19/2013 57304 CMP 11/19/2013 25208 LIPID PANEL 11/19/2013 01770 TSH 11/19/2013 45902 INSULIN LEVEL 11/19/2013 94668 CBC 11/20/2013 54486 TEST, URINE (IN- HOUSE) 05/25/2014 Results Test Result Range Streptococcus pyogenes antigen detection - 03/13/17 18:17 Streptococcus pyogenes antigen detection NEGATIVE NEGATIVE Encounters ACCT No. Visit Date/Time Discharge Status Pt. Type Provider Facility Loc./Unit Complaint [id number] 05/25/2014 14:37:00 05/25/2014 23:59:59 CLS Outpatient ELIAS PAREDES APRN [id number] 04/20/2014 13:51:00 04/20/2014 23:59:59 CLS Outpatient DONY RUFFIN MD [id number] 11/25/2013 10:57:00 11/25/2013 23:59:59 CLS Outpatient ANCELMO CASTRO MD [id number] 11/19/2013 13:26:00 11/19/2013 23:59:59 CLS Outpatient ELIAS PAREDES APRN [id number] 01/17/2018 13:00:00 01/17/2018 23:59:59 CLS Outpatient PERICO DOMINGO [facility] [id number] 08/07/2017 23:00:00 08/07/2017 23:54:00 DIS Emergency LEOLA NAVA DO [facility] ER POSS PNEUMONIA [id number] 03/13/2017 18:03:00 03/13/2017 19:19:00 DIS Emergency CARLA PALOMINO APRN [facility] ER SORE THROAT [id number] 06/25/2016 18:39:00 06/25/2016 21:01:00 DIS Emergency MALIK MANDUJANO [facility] ER L FOOT INJ, ALSO WANTS TO BE SEEN FOR COLD TX 1 MO [id number] 02/26/2013 20:44:00 02/26/2013 21:35:00 DIS Emergency CARLA PALOMINO APRN [facility] ER COUGH, SORE THROAT, CHEST TIGHTNESS [id number] 08/06/2012 00:44:00 Document Registration
--- NOTE | 2018-03-06 20:09 | ED Cough/URI ---
General Chief Complaint: Fever-Adult/Adol Stated Complaint: FEVER, CHILLS, WEAK LEGS, [place]UE[place], SORE THROAT Nursing Triage Note: complaint of fever since yesterday. and N/V x 1 week. sore throat Source: patient Exam Limitations: no limitations History of Present Illness Date Seen by Provider: Mar 06, 2018 Time Seen by Provider: 20:07 Initial Comments Patient complains of fever, sore throat, nausea for one week. She reports that she was also seen [facility] and did not receive any medications but was told she had a viral illness. She said "I just want a shot or something to get over this quickly so I can go back to work". Timing/Duration: week Severity/Quality: mild, dry cough Prior Episodes/Possible Cause: no prior episodes Associated Symptoms: cough, fever/chills, sore throat Allergies and Home Medications Allergies Coded Allergies: No Known Drug Allergies (Unverified , 08/06/12) Home Medications Benzonatate 200 Mg Capsule, 200 MG PO Q8H PRN for COUGH Prescribed by: MALIK DOYLE on 06/25/161957 Benzonatate 100 Mg Capsule, 1-2 TAB PO TID Prescribed by: LEOLA NAVA on 08/07/172343 Cefuroxime Axetil 250 Mg Tablet, 250 MG PO BID Prescribed by: CARLA PALOMINO on 03/13/171848 D-Methorphan Hb/Prometh HCl 118 Ml Syrup, 1-2 TSP PO Q4H Prescribed by: LEOLA NAVA on 08/07/172343 Doxycycline Hyclate 100 Mg Capsule, 100 MG PO BID Prescribed by: MALIK DOYLE on 06/25/161957 Doxycycline Monohydrate 100 Mg Capsule, 100 MG PO BID Prescribed by: LEOLA NAVA on 08/07/172343 Lidocaine HCl 30 Ml Jel..ml., 1 ML MM Q1HR PRN for PAIN-MODERATE Prescribed by: CARLA PALOMINO on 03/13/171848 Methylprednisolone 4 Mg Tab.ds.pk, 4 MG PO UD Prescribed by: LEOLA NAVA on 08/07/172343 Ondansetron 4 Mg Tab.rapdis, 4 MG SL Q4H PRN for NAUSEA/VOMITING-1ST LINE Prescribed by: DAREK MENDEZ on 03/06/182017 Promethazine HCl/Codeine 5 Ml Syrup, 5 ML PO Q4H PRN for COUGH Prescribed by: CARLA PALOMINO on 03/13/171848 [Iron] , 130 MG PO DAILY, (Reported) Patient Home Medication List Home Medication List Reviewed: Yes Review of Systems Review of Systems Constitutional: see HPI, chills, fever EENTM: see HPI, throat pain Gastrointestinal: see HPI, nausea, vomiting All Other Systems Reviewed Negative Unless Noted: Yes Past Gtqbfpn-Vsehqb-Jscbuj Hx Past Med/Social Hx: Reviewed Nursing Past Med/Soc Hx Patient Social History 2nd Hand Smoke Exposure: Yes (BOTH PARENTS SMOKE) Recent Foreign Travel: No Contact w/Someone Who Travel: No Recent Infectious Disease Expo: No Recent Hopitalizations: No Physical Abuse: No Sexual Abuse: No Mistreated: No Fear: No Immunizations Up To Date Tetanus Booster (TDap): More than 5yrs PED Vaccines UTD: Yes Seasonal Allergies Seasonal Allergies: Yes (cough ) Past Medical History Surgeries: No Respiratory: No Cardiac: No Neurological: Yes (BRONCHITIS) Reproductive Disorders: No Female Reproductive Disorders: Denies Sexually Transmitted Disease: No Genitourinary: No Gastrointestinal: No Musculoskeletal: No Endocrine: No HEENT: No Cancer: No Psychosocial: Yes Anxiety Integumentary: No Blood Disorders: Yes (ANEMIA) Family Medical History Reviewed Nursing Family Hx No Pertinent Family Hx Physical Exam Vital Signs - First Documented 03/06/18 03/06/18 19:43 21:14 Temp 103.3 Pulse 116 Resp 18 B/P (MAP) 118/82 (94) Pulse Ox 99 O2 Delivery Room Air Capillary Refill : NONE Height: 5'8.00" Weight: 260lbs. oz. 117.421261vb; BMI Method:Estimated General Appearance: no apparent distress HEENT: PERRL/EOMI, normal ENT inspection, TMs normal, pharyngeal erythema, tonsillar exudate (thick white patches on both tonsils. No muffled or hot potato voice, uvula is midline.) Respiratory: chest non-tender, lungs clear, normal breath sounds, no respiratory distress, no accessory muscle use Cardiovascular: normal peripheral pulses, regular rate, rhythm, no edema, no gallop, no JVD, no murmur Neurologic/Psychiatric: alert, normal mood/affect, oriented x 3 Skin: normal color, warm/dry Progress/Results/Core Measures Suspected Sepsis Recent Fever Within 48 Hours: No Infection Criteria Present: None New/Unexplained Altered Menta: No Sepsis Screen: No Definite Risk SIRS Temperature:103.3 Pulse: 116 Respiratory Rate: 18 Blood Pressure 118 /82 Mean: 94 Results/Orders Lab Results Laboratory Tests Test 03/06/18 19:38 Range/Units Group A Streptococcus Screen NEGATIVE NEGATIVE Micro Results Microbiology 03/06/18 Influenza Types A,B Antigen (TATY) - Final, Complete My Orders Orders - DAREK MENDEZ Influenza A And B Antigens (03/06/18 19:36) Rapid Strep A Screen (03/06/18 19:36) Ondansetron Oral Dissolve Tab (Zofran (03/06/18 20:15) Penicillin G Proc/Saeid 1.2 Mu (Bicillin (03/06/18 20:15) Rx-Ondansetron Po (Rx-Zofran Po) (03/06/18 20:26) Ibuprofen Tablet (Motrin Tablet) (03/06/18 21:00) Acetaminophen Tablet (Tylenol Tablet) (03/06/18 21:15) Acetaminophen Tablet (Tylenol Tablet) (03/06/18 21:06) Medications Given in ED Current Medications Medications Dose Ordered Sig/Avelino Route Start Time Stop Time Status Last Admin Dose Admin Acetaminophen 500 mg STK-MED ONCE .ROUTE 03/06/18 21:06 03/06/18 21:10 DC 03/06/18 21:10 500 MG Ondansetron HCl 4 mg ONCE ONCE PO 03/06/18 20:15 03/06/18 20:16 DC 03/06/18 20:15 4 MG Penicillin G Procaine/ Benzathine 1,200,000 unit ONCE ONCE IM 03/06/18 20:15 03/06/18 20:16 DC 03/06/18 20:40 1,200,000 UNIT Vital Signs/I&O 03/06/18 03/06/18 19:43 21:14 Temp 103.3 98.4 Pulse 116 80 Resp 18 18 B/P (MAP) 118/82 (94) 120/78 (94) Pulse Ox 99 O2 Delivery Room Air Room Air Capillary Refill : NONE Blood Pressure Mean: 94 Progress Note : Time: 20:15 Progress Note I have seen and evaluated the patient. I will be treating for Strep pharyngitis given physical exam. She request the 1 time shot. She agrees with plan of care. Return precautions were given. Departure Impression Primary Impression: Strep throat Disposition: HOME, SELF-CARE Condition: Stable/Unchanged Departure-Patient Inst. Decision time for Depature: 20:17 Referrals: NO,LOCAL PHYSICIAN (PCP) Primary Care Physician Patient Instructions: Strep Throat (DC) Add. Discharge Instructions: Continue to use ibuprofen and Tylenol as directed by the bottle for pain and fever. Gtps-acr-evimwtb throat lozenges or sprays might be beneficial in pain relief. Follow up with [facility] within 1 week for recheck. Return back to the emergency room for any worsening symptoms or concerns as needed. All discharge instructions reviewed with patient and/or family. Voiced understanding. Scripts Ondansetron (Zofran Odt) 4 Mg Tab.rapdis 4 MG SL Q4H PRN for NAUSEA/VOMITING-1ST LINE, #14 TAB Prov: DAREK MENDEZ 03/06/18 DAREK MENDEZ Mar 06, 2018 20:09
[2018-03-06] MEDS ORDERED: ONDANSETRON 4 MG (ZOFRAN) ORAL DISSOLVE TAB PO ONE (20:15)
[2018-03-06] MEDS ORDERED: PEN G PROC/BENZATH 1.2 M UNITS (BICILLIN C-R) SYR IM ONE (20:15)
[2018-03-06] MEDS ORDERED: ONDA4TAB8 SL (20:18)
[2018-03-06] MEDS ORDERED: RX-ONDANSETRON 4 MG ODT (ZOFRAN) PPK #4 PO STA (20:26)
[2018-03-06] MEDS ORDERED: IBUPROFEN TABLET 200 MG TAB PO ONE (21:00)
[2018-03-06] MEDS ORDERED: ACETAMINOPHEN 500 MG TAB (TYLENOL) ONE (21:06)
[2018-03-06 21:14] VITALS: BP 120/78
[2018-03-06] MEDS ORDERED: ACETAMINOPHEN 500 MG TAB (TYLENOL) PO PRN (21:15)
== END 2018-03-06 21:14 | disposition home or self-care (01) ==
LOC: EDUNIT# 17:36 → ER 17:37
DX: J02.0 Streptococcal pharyngitis (principal); F41.9 Anxiety disorder, unspecified; F64.9 Gender identity disorder, unspecified; Z79.52 Long term (current) use of systemic steroids; Z87.09 Personal history of other diseases of the respiratory system
CPT/HCPCS: 87430; 87804

== ENCOUNTER 2019-03-10 08:25 | Emergency (ER) | payer SELFPAY ==
[~2019-03-10] VITALS: Ht 172 cm; Wt 106.0 kg
[~2019-03-10 08:25] MED LIST changes: -D-ME118S7 PO; +ONDA4TAB8 SL; +PROM118S4 PO
[2019-03-10] MEDS ORDERED: LACTATED RINGERS 1,000 ML IV STA (09:24)
[2019-03-10] MEDS ORDERED: ACETAMINOPHEN 500 MG TAB (TYLENOL) PO STA (09:24)
[2019-03-10 09:30] LABS: BASOPHILS % (AUTO) 0 % (0-10); EOSINOPHILS % (AUTO) 0 % (0-10); HEMATOCRIT 39 % (35-52); HEMOGLOBIN 12.7 G/DL (11.5-16.0); LYMPHOCYTES # (AUTO) 0.9 X 10^3 (1.0-4.0); LYMPHOCYTES % (AUTO) 12 % (12-44); MEAN CORPUSCULAR HEMOGLOBIN 27 PG (25-34); MEAN CORPUSCULAR HGB CONC 33 G/DL (32-36); MEAN CORPUSCULAR VOLUME 82 FL (80-99); MEAN PLATELET VOLUME 9.7 FL (7.4-10.4); MONOCYTES # (AUTO) 0.6 X 10^3 (0.0-1.0); MONOCYTES % (AUTO) 8 % (0-12); NEUTROPHILS # (AUTO) 6.1 X 10^3 (1.8-7.8); NEUTROPHILS % (AUTO) 80 % (42-75); PLATELET COUNT 170 10^3/uL (130-400); RED CELL DISTRIBUTION WIDTH 13.9 % (10.0-14.5); WHITE BLOOD COUNT 7.6 10^3/uL (4.3-11.0)
[2019-03-10 09:49] LABS: ALANINE AMINOTRANSFERASE 26 U/L (0-55); ALBUMIN 4.1 GM/DL (3.2-4.5); ALKALINE PHOSPHATASE 92 U/L (40-136); BILIRUBIN,TOTAL 0.7 MG/DL (0.1-1.0); BUN/CREATININE RATIO 10; CALCIUM 8.7 MG/DL (8.5-10.1); CARBON DIOXIDE 27 MMOL/L (21-32); CREATININE SERUM 0.79 MG/DL (0.60-1.30); GFR ESTIMATED > 60; GLUCOSE 84 MG/DL (70-105); TOTAL PROTEIN 7.6 GM/DL (6.4-8.2)
--- NOTE | 2019-03-10 09:55 | Diagnostic Imaging Report ---
EXAMINATION: CHEST (PA AND LATERAL) CLINICAL INDICATION: 23-year-old female, chest pain, fever, vomiting. COMPARISON: August 07, 2017. FINDINGS: There is right parahilar airspace consolidation which is a change since comparison exam. Heart size and mediastinal contours are unremarkable. There is no identified pneumothorax. There is no pleural effusion. There is no additional focal airspace consolidation. IMPRESSION: 1. Right perihilar airspace consolidation which may reflect pneumonia or other alveolar consolidative process. Recommend correlation clinically and insurer followup to resolution. Dictated by: Dictated on workstation # [id number]
[2019-03-10 09:58] LABS: CHLORIDE 102 MMOL/L (98-107); POTASSIUM 3.3 MMOL/L (3.6-5.0); SODIUM 139 MMOL/L (135-145)
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
[2019-03-10 10:48] LABS: BILIRUBIN,URINE NEGATIVE (NEGATIVE); CLARITY,URINE CLEAR; COLOR,URINE YELLOW; GLUCOSE, URINE (UA) NEGATIVE (NEGATIVE); KETONES,URINE NEGATIVE (NEGATIVE); LEUKOCYTE ESTERASE ,URINE 1+ (NEGATIVE); NITRITE,URINE NEGATIVE (NEGATIVE); PH,URINE 6 (5-9); PROTEIN,URINE 1+ (NEGATIVE); UROBILINOGEN,URINE NORMAL (NORMAL)
[2019-03-10 11:00] LABS: AMORPHOUS SEDIMENT,UR RARE AMOR URATES /LPF; BACTERIA,URINE MODERATE /HPF; WBC,URINE 0-2 /HPF
[2019-03-10] MEDS ORDERED: LEVO750T39 PO (11:15)
[2019-03-10 11:54] VITALS: BP 124/77
== END 2019-03-10 11:54 | disposition home or self-care (01) ==
LOC: EDUNIT# 08:25 → ER 08:26
DX: J18.1 Lobar pneumonia, unspecified organism (principal); F41.9 Anxiety disorder, unspecified; D64.9 Anemia, unspecified; Z79.52 Long term (current) use of systemic steroids
CPT/HCPCS: 36415; 71046; 80053; 81000; 84703; 85025; 86141; 87088; 87804

== ENCOUNTER 2020-10-16 15:22 | Emergency (ER) | payer OTHER ==
[~2020-10-16] VITALS: Ht 167 cm; Wt 102.0 kg
[~2020-10-16 15:22] MED LIST changes: +LEVO750T39 PO; -PROM118S4 PO; +PROM118S5 PO
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
[2020-10-16] MEDS ORDERED: ACHD5005 PO (18:17)
[2020-10-16] MEDS ORDERED: NS 100 ML (IVPB) BAG IV ONE (19:00)
[2020-10-16] MEDS ORDERED: CATHETER FLUSH 10 ML SYR IV PRN (19:00)
[2020-10-16] MEDS ORDERED: IOHEXOL 350 MG/ML 100 ML (OMNIPAQUE 350) VIAL IV ONE (19:00)
[2020-10-16] MEDS ORDERED: HOLD METFORMIN - RECEIVED CONTRAST 20 ML VIAL IV SCH (19:00)
--- NOTE | 2020-10-16 20:03 | Diagnostic Imaging Report ---
INDICATION: Possible C7 transverse process fracture. TECHNIQUE: CT imaging of the neck following administration of intravenous contrast. Multiplanar including MIP reformatted images. Auto Exposure Controls were utilized during the CT exam to meet ALARA standards for radiation dose reduction. CORRELATION STUDY: None. FINDINGS: The right C7 transverse process appears better visualized. No definitive evidence for a right-sided C7 transverse process fracture at follow-up. On the current study this is without definitive fracture. There is straightening and mild reversal of normal cervical lordosis. There is a normal three vessel branching pattern of the aortic arch. Brachycephalic trunk as well as bilateral common, internal, external carotid arteries are widely patent. The vertebral arteries are relatively codominant. There is asymmetric entry of the vertebral arteries into the transverse foramina. On the left, enters at C6 and on the right at C4. Vertebral arteries are of normal caliber. No intraluminal filling defect. No change in caliber. Soft tissues of the neck are unremarkable. Airway is patent. IMPRESSION: 1. Unremarkable CTA of the neck. 2. Cervical spine without definitive fracture. Dictated by: Dictated on workstation # [id number]
[2020-10-16 20:10] VITALS: BP 98/85
== END 2020-10-16 20:10 | disposition home or self-care (01) ==
LOC: EDUNIT# 15:22 → ER 15:24
DX: S16.1XXA Strain of muscle, fascia and tendon at neck level, initial encounter (principal); Z77.22 Contact with and (suspected) exposure to environmental tobacco smoke (acute) (chronic); V89.2XXA Person injured in unspecified motor-vehicle accident, traffic, initial encounter
CPT/HCPCS: 70450; 70498; 72125

== ENCOUNTER 2021-03-03 09:35 | Emergency (ER) | payer SELFPAY ==
[~2021-03-03] VITALS: Ht 167 cm; Wt 88.0 kg
[~2021-03-03 09:35] MED LIST changes: +ACHD5005 PO; +DOXY-311 PO; -DOXY100C2 PO; -DOXY100C42 PO; +DOXY100C5 PO
[2021-03-03] MEDS ORDERED: NS IV 1000 ML 1,000 ML IV STA (10:10)
[2021-03-03] MEDS ORDERED: fentaNYL INJ 100 MCG/2 ML AMP IVP STA ×2 (10:10→11:59)
[2021-03-03] MEDS ORDERED: KETOROLAC 30 MG/ML VIAL IVP STA (10:10)
--- NOTE | 2021-03-03 10:10 | ED Back Pain ---
General Chief Complaint: Back Problems Stated Complaint: BACK PAIN Nursing Triage Note: ARRIVED VIA AMB TO ROOM 04 WITH COMPLAINTS OF LEFT SIDED FLANK PAIN THAT SHE WOKE UP WITH. TEARFUL. Source of Information: Patient, Family Exam Limitations: No Limitations History of Present Illness Date Seen by Provider: Mar 03, 2021 Time Seen by Provider: 10:00 Initial Comments Here with report of severe left-sided flank pain that woke her up this morning. States that she has been unable to get into comfortable position. Associated with nausea. She has never had anything like this before. She is relatively healthy without any significant underlying medical problems and takes no medications. Denies dysuria or diarrhea. Denies blood in her urine or stool. Denies fever or chills. Timing/Duration: 4-6 Hours Severity: Moderate, Severe Pain/Injury Location: Other (Left flank) Radiation: Other (Left side of the abdomen pelvis) Method of Injury: Unknown Associated Symptoms: No muscle spasms, No fever Allergies and Home Medications Allergies Coded Allergies: No Known Drug Allergies (Unverified , 08/06/12) Patient Home Medication List Home Medication List Reviewed: Yes Benzonatate (Benzonatate) 200 Mg Capsule, 200 MG PO Q8H PRN for COUGH Prescribed by: MALIK DOYLE on 06/25/161957 Benzonatate (Tessalon Perles) 100 Mg Capsule, 1-2 TAB PO TID Prescribed by: LEOLA NAVA on 08/07/172343 Cefuroxime Axetil (Cefuroxime) 250 Mg Tablet, 250 MG PO BID Prescribed by: CARLA PALOMINO on 03/13/17 184 D-Methorphan Hb/Prometh HCl (Promethazine-Dm Syrup) 118 Ml Syrup, 1-2 TSP PO Q4H Prescribed by: LEOLA NAVA on 08/07/172343 Doxycycline Hyclate (Doxycycline Hyclate) 100 Mg Capsule, 100 MG PO BID Prescribed by: MALIK DOYLE on 06/25/161957 Doxycycline Monohydrate (Doxycycline Monohydrate) 100 Mg Capsule, 100 MG PO BID Prescribed by: LEOLA NAVA on 08/07/172343 Hydrocodone/Acetaminophen (Hydrocodone-Acetamin 5-325 mg) 1 Each Tablet, 1 TAB PO Q4H PRN for PAIN-MODERATE (5-7) Prescribed by: CARLA PALOMINO on 10/16/20 1818 Levofloxacin (Levofloxacin) 750 Mg Tablet, 750 MG PO DAILY Prescribed by: ZAKI GARZON on 03/10/19 1115 Lidocaine HCl (Lidocaine HCl) 30 Ml Jel..ml., 1 ML MM Q1HR PRN for PAIN-MODERATE Prescribed by: CARLA PALOMINO on 03/13/17 184 Methylprednisolone (Medrol) 4 Mg Tab.ds.pk, 4 MG PO UD Prescribed by: LEOLA NAVA on 08/07/17 234 Ondansetron (Zofran Odt) 4 Mg Tab.rapdis, 4 MG SL Q4H PRN for NAUSEA/VOMITING- 1ST LINE Prescribed by: DAREK MENDEZ on 03/06/182017 Promethazine HCl/Codeine (Prometh-Codein 6.25-10 mg/5 ml) 5 Ml Syrup, 5 ML PO Q4H PRN for COUGH Prescribed by: CARLA PALOMINO on 03/13/17 184 [Iron] , 130 MG PO DAILY, (Reported) Entered as Reported by: SHYAM URENA on 06/25/16 190 Review of Systems Constitutional: see HPI; No chills, No fever EENTM: No nose congestion, No throat pain Respiratory: No cough, No short of breath Cardiovascular: No chest pain, No edema Gastrointestinal: abdominal pain; No diarrhea Genitourinary: No dysuria; pain : Yes LMP: Feb 17, 2021 Musculoskeletal: back pain; No joint pain Skin: no symptoms reported Psychiatric/Neurological: No Symptoms Reported All Other Systems Reviewed Negative Unless Noted: Yes Past Vunngtu-Imnpma-Qxbufd Hx Patient Social History Tobacco Use?: No Smoking Status: Never a Smoker Substance use?: No Substance type: Marijuana Alcohol Use?: Yes Alcohol Frequency: Once in a while Immunizations Up To Date Tetanus Booster (TDap): More than 5yrs PED Vaccines UTD: Yes Seasonal Allergies Seasonal Allergies: Yes (cough ) Past Medical History Surgeries: No Respiratory: No Cardiac: No Neurological: Yes (BRONCHITIS) Last Menstrual Period: Feb 17, 2021 Reproductive Disorders: No Female Reproductive Disorders: Denies Sexually Transmitted Disease: No Genitourinary: No Gastrointestinal: No Musculoskeletal: No Endocrine: No HEENT: No Cancer: No Psychosocial: Yes Anxiety Integumentary: No Blood Disorders: Yes (ANEMIA) Family Medical History Reviewed Nursing Family Hx No Pertinent Family Hx Physical Exam Vital Signs Vital Signs - First Documented 03/03/21 09:50 Pulse 71 Resp 16 B/P (MAP) 137/103 (114) Pulse Ox 100 O2 Delivery Room Air Capillary Refill : Less Than 3 Seconds Height, Weight, BMI Height: 5'8.00" Weight: 260lbs. oz. 117.838301rt; 31.00 BMI Method:Estimated General Appearance: WD/WN, Moderate Distress HEENT: PERRL/EOMI, Pharynx Normal Neck: Non Tender, Supple Cardiovascular: Regular Rate, Rhythm, No Murmur Respiratory: Lungs Clear, Normal Breath Sounds Gastrointestinal: Non Tender, Soft Back: CVA Tenderness (L); No Muscle Spasm Extremity: Normal Range of Motion, Non Tender Neurologic/Psychiatric: Alert, Oriented x3 Skin: Normal Color, Warm/Dry Progress/Results/Core Measures Results/Orders Lab Results Laboratory Tests Test 03/03/21 10:20 03/03/21 11:22 Range/Units White Blood Count 8.6 4.3-11.0 10^3/uL Red Blood Count 4.78 3.80-5.11 10^6/uL Hemoglobin 14.0 11.5-16.0 g/dL Hematocrit 40 35-52 % Mean Corpuscular Volume 84 80-99 fL Mean Corpuscular Hemoglobin 29 25-34 pg Mean Corpuscular Hemoglobin Concent 35 32-36 g/dL Red Cell Distribution Width 12.6 10.0-14.5 % Platelet Count 266 130-400 10^3/uL Mean Platelet Volume 9.6 9.0-12.2 fL Immature Granulocyte % (Auto) 0 % Neutrophils (%) (Auto) 77 H 42-75 % Lymphocytes (%) (Auto) 17 12-44 % Monocytes (%) (Auto) 5 0-12 % Eosinophils (%) (Auto) 1 0-10 % Basophils (%) (Auto) 0 0-10 % Neutrophils # (Auto) 6.6 1.8-7.8 10^3/uL Lymphocytes # (Auto) 1.4 1.0-4.0 10^3/uL Monocytes # (Auto) 0.4 0.0-1.0 10^3/uL Eosinophils # (Auto) 0.0 0.0-0.3 10^3/uL Basophils # (Auto) 0.0 0.0-0.1 10^3/uL Immature Granulocyte # (Auto) 0.0 0.0-0.1 10^3/uL Sodium Level 141 135-145 MMOL/L Potassium Level 3.7 3.6-5.0 MMOL/L Chloride Level 106 98-107 MMOL/L Carbon Dioxide Level 21 21-32 MMOL/L Anion Gap 14 5-14 MMOL/L Blood Urea Nitrogen 9 7-18 MG/DL Creatinine 0.80 0.60-1.30 MG/DL Estimat Glomerular Filtration Rate 87 BUN/Creatinine Ratio 11 Glucose Level 116 H 70-105 MG/DL Calcium Level 9.7 8.5-10.1 MG/DL Corrected Calcium 9.4 8.5-10.1 MG/DL Total Bilirubin 1.0 0.1-1.0 MG/DL Aspartate Amino Transf (AST/SGOT) 24 5-34 U/L Alanine Aminotransferase (ALT/SGPT) 46 0-55 U/L Alkaline Phosphatase 77 40-136 U/L C-Reactive Protein High Sensitivity 0.60 H 0.00-0.50 MG/DL Total Protein 7.6 6.4-8.2 GM/DL Albumin 4.4 3.2-4.5 GM/DL Serum Test, Qualitative NEGATIVE NEGATIVE Urine Color YELLOW Urine Clarity CLEAR Urine pH 6.0 5-9 Urine Specific Mystic 1.025 H 1.016-1.022 Urine Protein 2+ H NEGATIVE Urine Glucose (UA) NEGATIVE NEGATIVE Urine Ketones 2+ H NEGATIVE Urine Nitrite NEGATIVE NEGATIVE Urine Bilirubin 1+ H NEGATIVE Urine Urobilinogen 1.0 < = 1.0 MG/DL Urine Leukocyte Esterase 1+ H NEGATIVE Urine RBC (Auto) 3+ H NEGATIVE Urine RBC >100 H /HPF Urine WBC 10-25 H /HPF Urine Squamous Epithelial Cells 10-25 H /HPF Urine Crystals PRESENT H /LPF Urine Calcium Oxalate Crystals RARE H /LPF Urine Bacteria LARGE H /HPF Urine Casts NONE /LPF Urine Mucus MODERATE H /LPF Urine Culture Indicated YES My Orders Orders - ZAKI GARZON MD Cbc With Automated Diff (03/03/21 10:10) Comprehensive Metabolic Panel (03/03/21 10:10) Hs C Reactive Protein (03/03/21 10:10) Ua Culture If Indicated (03/03/21 10:10) Ondansetron Injection (Zofran Injectio (03/03/21 10:15) Ns Iv 1000 Ml (Sodium Chloride 0.9%) (03/03/21 10:10) Ed Iv/Invasive Line Start (03/03/21 10:10) Fentanyl Inj (Sublimaze Injection) (03/03/21 10:10) Ketorolac Injection (Toradol Injection) (03/03/21 10:10) Urine Bedside (03/03/21 10:10) Hcg,Qualitative Serum (03/03/21 11:01) Ct Abd/Pelvis Wo(Kidney Stone) (03/03/21 11:02) Urine Culture (03/03/21 11:22) Fentanyl Inj (Sublimaze Injection) (03/03/21 11:59) Abdomen/Kub 1view (03/03/21 12:18) Medications Given in ED Current Medications Medications Dose Ordered Sig/Avelino Route Start Time Stop Time Status Last Admin Dose Admin Ondansetron HCl 4 mg ONCE ONCE IVP 03/03/21 10:15 03/03/21 10:16 DC 03/03/21 10:22 4 MG Vital Signs/I&O 03/03/21 09:50 Pulse 71 Resp 16 B/P (MAP) 137/103 (114) Pulse Ox 100 O2 Delivery Room Air Blood Pressure Mean: 114 Progress Progress Note : Progress Note Seen and evaluated. IV, labs, UA, UCG, normal saline 1 L bolus, Toradol 30 mg IV, Zofran 4 mg IV and fentanyl 50 mcg IV ordered. Anticipate CT abdomen pelvis rule out kidney stone. Monitor patient. 1105: Added serum hCG as patient has not been able to provide urine yet. Much more comfortable. Monitor patient. 1223: We have repeated fentanyl x1 and she is overall much better. CT results reviewed and patient does have small left-sided kidney stone with mild hydronephrosis. At this point, she can be safely discharged. We will go ahead and get KUB for Dr. Munroe. She was instructed to follow-up with him for recheck and further evaluation. Discharged home with return precautions. Patient verbalized understanding of instructions and agreement with plan. Diagnostic Imaging Diagonstic Imaging: CT Plain Films/CT/US/NM/MRI: abdomen, pelvis Comments [facility]. [place], [place] NAME: ZAHRA SAUER [facility] REC#: [id number] PT STATUS: REG ER : 1995 PHYSICIAN: ZAKI GARZON MD ADMIT DATE: 03/03/21/ER Draft Date of Exam:03/03/21 CT ABD/PELVIS WO(KIDNEY STONE) EXAMINATION: CT abdomen and pelvis without contrast. TECHNIQUE: Multiple contiguous axial images were obtained through the abdomen and pelvis without the use of intravenous contrast. All CT scans use one or more of the following dose optimizing techniques: Automated exposure control, MA and/or KvP adjustment based on patient size and exam type or iterative reconstruction. HISTORY: Flank pain. COMPARISON: None available. FINDINGS: Limited views of the lower thorax are unremarkable. The liver is normal without focal lesion. There is no biliary ductal dilation. Gallbladder is normal. Pancreas is normal. Spleen is normal. Adrenal glands are normal. There is a 3 mm left ureteropelvic junction stone with mild left-sided hydronephrosis. There is a nonobstructing stone in the right kidney. Urinary bladder is normal. Visualized bowel is normal in caliber without obstruction or inflammation. No free fluid or air. No abdominal or pelvic lymphadenopathy. Aorta is normal in caliber without aneurysm. There are no suspicious osseous lesions. IMPRESSION: 1. Left ureteropelvic junction stone measuring 3 mm with mild left-sided hydronephrosis. Dictated on workstation # [id number] Dict: 03/03/21 1209 Trans: 03/03/21 1213 [id number] Interpreted by: JEAN IBARRA MD Electronically signed by: Departure Impression Primary Impression: Left ureteral stone Disposition: 01 HOME, SELF-CARE Condition: Improved Departure-Patient Inst. Decision time for Depature: 12:24 Referrals: NO,LOCAL PHYSICIAN (PCP) Primary Care Physician JENNIFER MUNROE MD Patient Instructions: Kidney Stones (DC), How to Strain Your Urine Add. Discharge Instructions: All discharge instructions reviewed with patient and/or family. Voiced understanding. Strain your urine and monitor for passing of the stone. Take medications as directed. You may also take ibuprofen 600 mg every 8 hours as needed for pain. It is very important that you drink plenty of fluids. Call Dr. Munroe's office today for appointment. Return for worse pain, fever, vomiting, weakness, dank athing problems or other concerns as needed. Scripts Tamsulosin HCl (Flomax) 0.4 Mg Cap 0.4 MG PO DAILY for 14 Days, #14 CAP 0 Refills Prov: ZAKI GARZON MD 03/03/21 Hydrocodone Bit/Acetaminophen (HYDROcodone/APAP 5 MG/325 MG TAB) 1 Tab Tab 1 TAB PO Q6H for Pain, #14 TAB 0 Refills Prov: ZAKI GARZON MD 03/03/21 Cephalexin (Cephalexin) 500 Mg Capsule 500 MG PO BID for 7 Days, #14 CAP 0 Refills Prov: ZAKI GARZON MD 03/03/21 Copy Copies To 1: JENNIFER MUNROE MD, TIMOTHY D MD Mar 03, 2021 10:10
[2021-03-03] MEDS ORDERED: ONDANSETRON 4 MG/2 ML (SDV) Z0FRAN IVP ONE (10:15)
[2021-03-03 10:33] LABS: BASOPHILS % (AUTO) 0 % (0-10); EOSINOPHILS % (AUTO) 1 % (0-10); HEMATOCRIT 40 % (35-52); LYMPHOCYTES # (AUTO) 1.4 10^3/uL (1.0-4.0); LYMPHOCYTES % (AUTO) 17 % (12-44); MEAN CORPUSCULAR HEMOGLOBIN 29 pg (25-34); MEAN CORPUSCULAR HGB CONC 35 g/dL (32-36); MEAN CORPUSCULAR VOLUME 84 fL (80-99); MEAN PLATELET VOLUME 9.6 fL (9.0-12.2); MONOCYTES # (AUTO) 0.4 10^3/uL (0.0-1.0); MONOCYTES % (AUTO) 5 % (0-12); NEUTROPHILS # (AUTO) 6.6 10^3/uL (1.8-7.8); NEUTROPHILS % (AUTO) 77 % (42-75); PLATELET COUNT 266 10^3/uL (130-400); WHITE BLOOD COUNT 8.6 10^3/uL (4.3-11.0)
[2021-03-03 10:42] LABS: ALBUMIN 4.4 GM/DL (3.2-4.5); POTASSIUM 3.7 MMOL/L (3.6-5.0)
[2021-03-03 10:44] LABS: CALCIUM 9.7 MG/DL (8.5-10.1)
[2021-03-03 10:45] LABS: TOTAL PROTEIN 7.6 GM/DL (6.4-8.2)
[2021-03-03 10:49] LABS: CREATININE SERUM 0.8 MG/DL (0.60-1.30)
[2021-03-03 11:33] LABS: CLARITY,URINE CLEAR; COLOR,URINE YELLOW; GLUCOSE, URINE (UA) NEGATIVE (NEGATIVE); KETONES,URINE 2+ (NEGATIVE); LEUKOCYTE ESTERASE ,URINE 1+ (NEGATIVE); NITRITE,URINE NEGATIVE (NEGATIVE); PROTEIN,URINE 2+ (NEGATIVE)
[2021-03-03 11:48] LABS: BACTERIA,URINE LARGE /HPF; BILIRUBIN,URINE 1+ (NEGATIVE); RBC,URINE >100 /HPF
[2021-03-03 11:49] LABS: CALCIUM OXALATE CRYSTALS,UR RARE /LPF
--- NOTE | 2021-03-03 12:14 | Diagnostic Imaging Report ---
EXAMINATION: CT abdomen and pelvis without contrast. TECHNIQUE: Multiple contiguous axial images were obtained through the abdomen and pelvis without the use of intravenous contrast. All CT scans use one or more of the following dose optimizing techniques: Automated exposure control, MA and/or KvP adjustment based on patient size and exam type or iterative reconstruction. HISTORY: Flank pain. COMPARISON: None available. FINDINGS: Limited views of the lower thorax are unremarkable. The liver is normal without focal lesion. There is no biliary ductal dilation. Gallbladder is normal. Pancreas is normal. Spleen is normal. Adrenal glands are normal. There is a 3 mm left ureteropelvic junction stone with mild left-sided hydronephrosis. There is a nonobstructing stone in the right kidney. Urinary bladder is normal. Visualized bowel is normal in caliber without obstruction or inflammation. No free fluid or air. No abdominal or pelvic lymphadenopathy. Aorta is normal in caliber without aneurysm. There are no suspicious osseous lesions. IMPRESSION: 1. Left ureteropelvic junction stone measuring 3 mm with mild left-sided hydronephrosis. Dictated by: Dictated on workstation # [id number]
[2021-03-03] MEDS ORDERED: TMSL.4C PO (12:27)
[2021-03-03] MEDS ORDERED: ACHD5005 PO (12:27)
[2021-03-03] MEDS ORDERED: CEPH500C PO (12:27)
[2021-03-03 12:34] VITALS: BP 122/83
--- NOTE | 2021-03-03 12:40 | Diagnostic Imaging Report ---
REASON FOR EXAM: Abdominal pain. Left flank pain. COMPARISON: CT performed the same date. TECHNIQUE: 2 views of the abdomen FINDINGS: The calculus at the left UPJ seen on prior CT performed earlier the same date is not well appreciated on this exam. A nonobstructing calculus is seen in the mid right kidney. No evidence of bowel obstruction. No large collections of free intraperitoneal air. No acute osseous abnormalities. IMPRESSION: Previously noted calculus at the left UVJ is not well seen on this exam. The calculus may have migrated along the course of the left ureter in the interim. Nonobstructing calculus is seen in the mid right kidney. Dictated by: Dictated on workstation # [id number]
== END 2021-03-03 12:34 | disposition home or self-care (01) ==
LOC: EDUNIT# 09:35 → ER 09:36
DX: N13.2 Hydronephrosis with renal and ureteral calculous obstruction (principal); D64.9 Anemia, unspecified; Z79.899 Other long term (current) drug therapy; Z32.02 Encounter for pregnancy test, result negative
CPT/HCPCS: 36415; 74018; 74176; 80053; 81000; 84703; 85025; 86141; 87088; 96361; 96374; 96375; 96376

== ENCOUNTER → 2021-03-21 | Outpatient (CLI) | payer SELFPAY ==
[~2021-03-21] MED LIST changes: +CEPH500C PO; +TMSL.4C PO
--- NOTE | 2021-03-21 16:42 | Diagnostic Imaging Report ---
INDICATION: History of left ureteral stone. COMPARISON: 03/03/2021 KUB. FINDINGS: There is a faint round calcification overlying the transverse process on the left at L4 which likely represents the ureteral stone noted previously on CT. No calcifications are seen in the pelvis. There is a small nonobstructing calculus noted overlying the lower pole of the right kidney. IMPRESSION: 1. Probable ureteral stone in the mid ureter on the left as described overlying the L4 transverse process. 2. Nonobstructing calculus in the lower pole of the right kidney again demonstrated. Dictated by: Dictated on workstation # [id number]
== END ==
LOC: RAD 14:24
PROVIDERS: ATTEND Urology
DX: N20.2 Calculus of kidney with calculus of ureter (principal)
CPT/HCPCS: 74018

== ENCOUNTER → 2021-03-28 | Outpatient (CLI) | payer SELFPAY ==
--- NOTE | 2021-03-28 14:17 | Diagnostic Imaging Report ---
PROCEDURE: CT abdomen and pelvis without contrast. TECHNIQUE: Multiple contiguous axial images were obtained through the abdomen and pelvis without the use of intravenous contrast. Auto Exposure Controls were utilized during the CT exam to meet ALARA standards for radiation dose reduction. INDICATION: Kidney stones and hematuria, followup. Correlation is made with prior CT from 03/03/2021. The lung bases are clear. The liver and gallbladder are unremarkable. No biliary duct dilatation is seen. The pancreas and spleen are unremarkable. No adrenal mass is identified. Small nonobstructing calculi in the right kidney again noted. A 3 mm calculus in the proximal left ureter is again noted perhaps slightly more distal than study from 03/03/2021. There continues to be significant amount of hydronephrosis present however. No other ureteral calculi are seen. There is no bladder calculi. Uterus unremarkable. The bowel loops are normal caliber. There is no ascites. IMPRESSION: Right-sided nonobstructing nephrolithiasis. 3 mm calculus in the proximal left ureter is again noted and has moved slightly more distal since the study from 03/03/2021. It continues to be significant left-sided hydroureteronephrosis. Dictated by: Dictated on workstation # [id number]
== END ==
LOC: RAD 12:55
PROVIDERS: ATTEND Urology
DX: N20.2 Calculus of kidney with calculus of ureter (principal); N13.30 Unspecified hydronephrosis
CPT/HCPCS: 74176

== ENCOUNTER 2021-03-30 05:34 | Outpatient (CLI) | payer SELFPAY ==
[~2021-03-30] VITALS: Ht 172.7 cm; Wt 95.5 kg
[2021-03-30] MEDS ORDERED: VITAMIN D PO (14:37)
[2021-03-30] MEDS ORDERED: BCP PO (14:37)
[2021-03-30] MEDS ORDERED: KETO10TA PO (14:37)
== END 2021-03-30 15:03 | disposition home or self-care (01) ==
LOC: PREOP 05:34
PROVIDERS: ATTEND Urology
DX: Z01.818 Encounter for other preprocedural examination (principal)

== ENCOUNTER 2021-04-05 08:47 | Day surgery (SDC) | payer BC ==
[2021-04-05] VITALS (10 sets, daily range): BP systolic 100–120; BP diastolic 66–96
[2021-04-05] MEDS: LACTATED RINGERS 1,000 ML IV PRN ×3 (08:00→10:56)
[~2021-04-05 08:47] MED LIST changes: +BCP PO; +KETO10TA PO; +VITAMIN D PO
[2021-04-05] MEDS ORDERED: cefTRIAXone 1,000 MG VIAL ONE (09:06)
[2021-04-05] MEDS ORDERED: WATER (STERILE) FOR INJECTION 10 ML ONE (09:06)
--- NOTE | 2021-04-05 09:13 | Progress Note-Pre Operative ---
Pre-Operative Progress Note H&P Reviewed The H&P was reviewed, patient examined and no changes noted. Date Seen by Provider: Apr 05, 2021 Time Seen by Provider: 09:13 Date H&P Reviewed: Apr 05, 2021 Time H&P Reviewed: 09:13 Pre-Operative Diagnosis: LT URETERAL STONE JENNIFER MUNROE MD Apr 05, 2021 09:13
--- NOTE | 2021-04-05 09:14 | Diagnostic Imaging Report ---
INDICATION: Status post ESWL. Left ureteral calculus. COMPARISON: CT dated 03/28/2021 FINDINGS: Two supine radiographic views of the abdomen were obtained. 5 mm calculus is identified projecting over the left psoas muscle at the L3-L4 intervertebral disc space. Punctate extraosseous calcification is also seen projecting over the inferior pole of the right kidney and likely corresponds to additional renal calculi seen on previous CT. No unexpected radiopaque foreign bodies are seen. Small bowel loops are nondistended. There is no large collection of free intraperitoneal air. Osseous structures show no acute abnormalities. IMPRESSION: 1. Left ureteral calculus. 2. Right-sided renal calculi. Dictated by: Dictated on workstation # [id number]
[2021-04-05] MEDS ORDERED: FAMOTIDINE 20MG/2ML IV (PEPCID) IV ONE (09:30)
[2021-04-05] MEDS ORDERED: ONDANSETRON 4 MG/2 ML (SDV) Z0FRAN IV ONE (09:30)
[2021-04-05] MEDS ORDERED: MIDAZOLAM 2 MG/2 ML (VERSED) VIAL IV ONE (09:30)
[2021-04-05] MEDS ORDERED: MIDAZOLAM 2 MG/2 ML (VERSED) VIAL ONE ×2 (09:42→10:52)
[2021-04-05] MEDS ORDERED: ONDANSETRON 4 MG/2 ML (SDV) Z0FRAN ONE ×2 (09:42→10:51)
[2021-04-05] MEDS ORDERED: FAMOTIDINE 20MG/2ML IV (PEPCID) ONE (09:43)
[2021-04-05] MEDS ORDERED: cefTRIAXone 1,000 MG in WATER (STERILE) FOR INJECTION 10 ML IV ONE (09:45)
[2021-04-05] MEDS ORDERED: proPOfol 200 MG/20 ML (DIPRIVAN) VIAL IV ONE (10:51)
[2021-04-05] MEDS ORDERED: LIDOCAINE PF 2% 5 ML (XYLOCAINE) VIAL ONE (10:51)
[2021-04-05] MEDS ORDERED: fentaNYL INJ 100 MCG/2 ML AMP ONE (10:52)
--- NOTE | 2021-04-05 11:10 | Progress Note-Post Operative ---
Post-Operative Progess Note Surgeon (s)/Lead Pressman (s) Surgeon JENNIFER MUNROE MD Lead Pressman: NONE Pre-Operative Diagnosis LT PROXIMAL URETERAL STONE Post-Operative Diagnosis SAME Procedure & Operative Findings Date of Procedure 04/05/21 Procedure Performed/Findings LT ESWL Anesthesia Type GENERAL Estimated Blood Loss Estimated blood loss (mL): NONE Specimens/Packing Specimens Removed NONE Packing: NONE JENNIFER MUNROE MD Apr 05, 2021 11:10
--- NOTE | 2021-04-05 11:11 | Discharge Inst-Urology ---
Discharge Inst-Urology Reconcile Patient Problems Problems Reviewed?: Yes Final Diagnosis LT PROXIMAL URETERAL STONE Patient Instructions/Follow Up Plan/Assessment/Instructions Please make appointment to been seen in office Wednesday 04/11 , KUB prior to it. KUB on way home Post ESWL instructions Increase oral fluids for 48 hours and then as needed. Diet and Activity as tolerated. If questions or concerns contact your physician Or seek help at emergency department. JENNIFER MUNROE MD Apr 05, 2021 11:11
[2021-04-05] MEDS ORDERED: KETOROLAC 30 MG/ML VIAL ONE (11:20)
[2021-04-05] MEDS ORDERED: FUROSEMIDE 40 MG/4 ML INJ (LASIX) ONE (11:20)
[2021-04-05] MEDS ORDERED: SEVOFLURANE (ULTANE) 15 ML INHAL SOLN ONE (11:27)
--- NOTE | 2021-04-05 13:26 | Anesthesia-General Post-Op ---
General Patient Condition Mental Status/LOC: Same as Preop Cardiovascular: Satisfactory Nausea/Vomiting: Absent Respiratory: Satisfactory Pain: Controlled Complications: Absent Post Op Complications Complications None Follow Up Care/Instructions Patient Instructions None needed. Anesthesia/Patient Condition Patient Condition Patient is doing well, no complaints, stable vital signs, no apparent adverse anesthesia problems. No complications reported per nursing. HARDIK LOPEZ CRNA Apr 05, 2021 13:26
--- NOTE | 2021-04-05 14:00 | Diagnostic Imaging Report ---
INDICATION: Status post lithotripsy, left ureteral stone. TIME OF EXAM: 1:31 p.m. COMPARISON: Correlation is made with radiograph performed earlier today. FINDINGS: A tiny calculus projected between the left L3 and L4 transverse processes is no longer visualized at this location. There is a questionable calcific density projected just inferior to the left SI joint, and it could be a distal ureteric calcific fragment. No other calculi are seen along the course of the ureters. Bowel gas pattern is unremarkable. IMPRESSION: Status post lithotripsy. There is a questionable distal left ureteric calcific fragment. No other abnormalities are seen. Dictated by: Dictated on workstation # [id number]
--- NOTE | 2021-04-05 18:52 | OPERATIVE REPORT ---
DATE OF SERVICE: 04/05/2021 PREOPERATIVE DIAGNOSIS: Left proximal ureteral stone. POSTOPERATIVE DIAGNOSIS: Left proximal ureteral stone. OPERATION PERFORMED: Left ESWL. SURGEON: Sina Munroe MD ANESTHESIA: General. COMPLICATIONS: None. DESCRIPTION OF PROCEDURE: Under satisfactory general anesthesia, the patient in supine position on the ESWL table, the left proximal ureteral stone was localized. Shocks were delivered at kV of 6. Total of 2500 shocks completely fragmented the stone that was hardly visualized. The patient received 40 mg of Lasix and 30 mg of Toradol IV at the end of the procedure. She tolerated the procedure and anesthesia well and was sent to recovery room in stable condition. Job ID: [id number] DocumentID: [id number] Dictated Date: 04/05/2021 11:28:35 Language Specialist Date: 04/05/2021 18:51:50 Dictated By: SINA MUNROE MD
== END 2021-04-05 13:35 | disposition home or self-care (01) ==
LOC: SDC 08:47
PROVIDERS: ATTEND Urology
DX: N20.1 Calculus of ureter (principal); J45.909 Unspecified asthma, uncomplicated; F41.9 Anxiety disorder, unspecified; G43.909 Migraine, unspecified, not intractable, without status migrainosus; K21.9 Gastro-esophageal reflux disease without esophagitis; Z79.899 Other long term (current) drug therapy; Z79.3 Long term (current) use of hormonal contraceptives; Z11.2 Encounter for screening for other bacterial diseases
CPT/HCPCS: 74018; 84703; 87081

== ENCOUNTER 2022-11-03 08:15 | Emergency (ER) | payer BC ==
[~2022-11-03] VITALS: Ht 167 cm; Wt 95.0 kg
[~2022-11-03 08:15] MED LIST changes: -DOXY-311 PO; +DOXY-444 PO; +LEVO750T PO; -LEVO750T39 PO
--- NOTE | 2022-11-03 08:38 | ED Lower Extremity ---
General Chief Complaint: Lower Extremity Stated Complaint: RT ANKLE INJ Nursing Triage Note: PT STATES SHE WAS RUNNING LAST NIGHT AND STEPPED IN A HOLE, CC OF RT ANKLE PAIN Source: patient Exam Limitations: no limitations History of Present Illness Date Seen by Provider: Nov 03, 2022 Time Seen by Provider: 08:17 Initial Comments 26-year-old female with no pertinent past medical history coming in due to right ankle pain. She was running last night, had a pothole, rolled her right ankle. She was able to put weight on it last night, but unable to today. Had Excedrin for a mild headache earlier today but no other pain medications, this did help with the pain somewhat. She noticed some swelling of her ankle so she wrapped it. She also skinned her left knee. Last tetanus shot was about 10 years ago. Otherwise denying any other acute complaints. Did not hit her head or pass out, no neck or back pain. Allergies and Home Medications Allergies Coded Allergies: No Known Drug Allergies (Unverified , 08/06/12) Patient Home Medication List Home Medication List Reviewed: Yes Hydrocodone/Acetaminophen (Hydrocodone-Acetamin 5-325 mg) 1 Each Tablet, 1 TAB PO Q4H PRN for PAIN-MODERATE (5-7) Prescribed by: CARLA PALOMINO on 10/16/201817 Ketorolac Tromethamine (Ketorolac Tromethamine) 10 Mg Tablet, 10 MG PO PRN PRN for PAIN, (Reported) Entered as Reported by: ARY SOLANO on 03/30/211436 Ondansetron (Zofran Odt) 4 Mg Tab.rapdis, 4 MG SL Q4H PRN for NAUSEA/VOMITING- 1ST LINE Prescribed by: DAREK MENDEZ on 03/06/182017 Tamsulosin HCl (Flomax) 0.4 Mg Cap, 0.4 MG PO DAILY Prescribed by: ZAKI GARZON on 03/03/21 1227 [Bcp] , 1 EA PO DAILY, (Reported) Entered as Reported by: ARY OSLANO on 03/30/21 143 [Iron] , 130 MG PO DAILY, (Reported) Entered as Reported by: SHYAM URENA on 06/25/16 1905 [Vitamin D] , 50,000 PO WEEK, (Reported) Entered as Reported by: ARY SOLANO on 03/30/21 1437 Review of Systems Constitutional: No fever EENTM: no symptoms reported Respiratory: no symptoms reported Cardiovascular: no symptoms reported Gastrointestinal: no symptoms reported Genitourinary: no symptoms reported Musculoskeletal: see HPI Past Prkrlmk-Bidyqk-Cjpqbp Hx Patient Social History Tobacco Use?: No Substance use?: No Alcohol Use?: Yes Alcohol Frequency: Once in a while Immunizations Up To Date Tetanus Booster (TDap): More than 5yrs PED Vaccines UTD: Yes Seasonal Allergies Seasonal Allergies: Yes (cough ) Past Medical History Surgery/Hospitalization HX: ASTHMA Surgeries: No Respiratory: Yes Asthma Currently Using CPAP: No Currently Using BIPAP: No Cardiac: No Neurological: Yes Headaches /Migraines Last Menstrual Period: October 11, 2022 Reproductive Disorders: No Female Reproductive Disorders: Denies Sexually Transmitted Disease: No Genitourinary: Yes Kidney Stones Gastrointestinal: No Musculoskeletal: No Endocrine: No HEENT: No Cancer: No Psychosocial: Yes Anxiety Integumentary: No Blood Disorders: Yes (ANEMIA) Family Medical History No Pertinent Family Hx Physical Exam Vital Signs Vital Signs - First Documented 11/03/22 08:21 Temp 36.8 Pulse 90 Resp 18 B/P (MAP) 123/79 (94) Pulse Ox 99 O2 Delivery Room Air Capillary Refill : Less Than 3 Seconds Height, Weight, BMI Height: 5'8.00" Weight: 260lbs. oz. [id number]; 34.00 BMI Method:Estimated General Appearance: WD/WN, no apparent distress HEENT: PERRL/EOMI, normal ENT inspection, pharynx normal Neck: non-tender, full range of motion, supple, normal inspection Cardiovascular: regular rate, rhythm, no edema, no murmur Respiratory: chest non-tender, lungs clear, normal breath sounds, no respiratory distress, no accessory muscle use Gastrointestinal: normal bowel sounds, non tender, soft; No rebound Hips: bilateral hip non-tender, bilateral hip normal inspection, bilateral hip normal range of motion, bilateral hip no evidence of injury Legs: bilateral leg non-tender, bilateral leg normal inspection, bilateral leg normal range of motion, bilateral leg no evidence of injury Knees: right knee non-tender, right knee normal inspection; bilateral knee normal range of motion, bilateral knee no evidence of injury; left knee other (Left knee with abrasions superficially, no bony tenderness) Ankles: right ankle other (Right ankle with swelling laterally, pain over the lateral malleoli, no proximal fibula tenderness, no Lisfranc tenderness, no fifth metatarsal tenderness, neurovascularly intact bilateral lower extremities) Neurologic/Tendon: normal sensation, normal motor functions, normal tendon functions Neurologic/Psychiatric: no motor/sensory deficits, alert, normal mood/affect Skin: normal color, warm/dry Progress/Results/Core Measures Results/Orders My Orders Orders - YOLANDA WILLAMS MD Ankle, Right, 3 Views (11/03/22 08:35) Dipht,Pertuss(Acell),Tet Adult (Boostrix (11/03/22 08:45) Ibuprofen Tablet (Motrin Tablet) (11/03/22 08:45) Medications Given in ED Current Medications Medications Dose Ordered Sig/Avelino Route Start Time Stop Time Status Last Admin Dose Admin Diphtheria/ Tetanus/Acell Pertussis 0.5 ml ONCE ONCE IM 11/03/22 08:45 11/03/22 08:46 DC 11/03/22 08:49 0.5 ML Ibuprofen 600 mg ONCE ONCE PO 11/03/22 08:45 11/03/22 08:46 DC 11/03/22 08:48 600 MG Vital Signs/I&O 11/03/22 11/03/22 08:21 08:48 Temp 36.8 36.8 Pulse 90 Resp 18 B/P (MAP) 123/79 (94) Pulse Ox 99 O2 Delivery Room Air Blood Pressure Mean: 94 Progress Progress Note : Progress Note 26-year-old female with above history coming in after she rolled her right ankle. ABCs were intact and vitals were stable on presentation. Physical exam with right lateral ankle tenderness and a positive squeeze test concerning likely for high ankle sprain. X-ray of the right ankle ordered and interpreted by me showing no fracture or dislocation of her ankle itself. She does have a break in the cortex of her navicular bone on x-ray, however she has no tenderness over this. Clinically, it does not seem fractured. We will place her in a boot and crutches and have her follow-up with orthopedics as an outpatient. She was given ibuprofen for pain. Diagnostic Imaging Diagonstic Imaging: Xray (right ankle) Departure Impression Primary Impression: High ankle sprain of right lower extremity Qualified Codes: S93.491A - Sprain of other ligament of right ankle, initial encounter Disposition: HOME, SELF-CARE Condition: Stable Departure-Patient Inst. Decision time for Depature: 09:05 Referrals: SEAN SEYMOUR APRN (PCP/Family) Primary Care Physician Patient Instructions: Ankle Sprain ED Add. Discharge Instructions: You do have a high ankle sprain which can take some time to heal. Please follow-up with Dr. Garay or the orthopedist of your choosing. Take ibuprofen 600 mg every 6 hours as needed for pain. You can also elevate it to help get the swelling down. You did have some findings on the x-ray on your navicular bone in your foot, however you had no pain over this. It would be something that I would want you to follow-up with with the orthopedist as well. Work/School Note: Work Release Form Date Seen in the Emergency Department: Nov 03, 2022 Return to Work: Nov 05, 2022 Restrictions: No Restrictions YOLANDA WILLAMS MD Nov 03, 2022 08:38
[2022-11-03] MEDS ORDERED: IBUPROFEN 600 MG (MOTRIN) TAB PO ONE (08:45)
[2022-11-03] MEDS ORDERED: TETANUS,DIPTH,PERTUSS P/F (BOOSTRIX) 0.5 ML VIAL IM ONE (08:45)
--- NOTE | 2022-11-03 09:03 | Diagnostic Imaging Report ---
INDICATION: Ankle pain. COMPARISON: None. FINDINGS: Three views of the right ankle were obtained. There is no acute fracture or dislocation. No focal osseous lesions are seen. There is moderate asymmetric lateral soft tissue swelling. There are no radiopaque foreign bodies. IMPRESSION: Moderate asymmetric lateral soft tissue swelling but no evidence of underlying acute fracture or dislocation. Dictated by: Dictated on workstation # [id number]
[2022-11-03 09:16] VITALS: BP 123/79
== END 2022-11-03 09:16 | disposition home or self-care (01) ==
LOC: EDUNIT# 08:15 → ER 08:17
DX: S93.491A Sprain of other ligament of right ankle, initial encounter (principal); S80.212A Abrasion, left knee, initial encounter; Z23 Encounter for immunization; X50.1XXA Overexertion from prolonged static or awkward postures, initial encounter; Y93.02 Activity, running
CPT/HCPCS: 73610; 99282; L2114; 90715